=== PATIENT | female | born 1950 | race Caucasian/White ===

== ENCOUNTER 2019-07-08 22:58 | Inpatient (IN) | payer MEDICARE, OTHER ==
[2019-07-09] MEDS ORDERED: Magnesium Hydroxide (MOM) 30 mL UDC PO PRN (04:51)
[2019-07-09] MEDS ORDERED: Maalox 30 mL Cup PO PRN (04:51)
[2019-07-09] MEDS: Multivitamin Tab PO SCH (08:29)
--- NOTE | 2019-07-09 16:24 | History & Physical ---
ADMIT DATE: 07/09/2019 HISTORY OF PRESENT ILLNESS: This is a 68-year-old female who is a transfer from [facility] who is medically cleared, who is a resident of [facility] who is on 5150 hold for being gravely disabled. PAST MEDICAL HISTORY: Hypertension, TIA, CVA, GERD, depression, anxiety, Alzheimer's. PAST SURGICAL HISTORY: Unknown. ALLERGIES: No drug allergies. HOME MEDICATIONS: See medication list. SOCIAL HISTORY: The patient is a care home resident. REVIEW OF SYSTEMS: Unable to obtain at this time. PHYSICAL EXAMINATION: GENERAL: The patient is well-developed, well-nourished, no apparent distress. VITAL SIGNS: Temperature 97.0, heart rate 69, blood pressure 132/66, respirations 20, O2 97%. HEENT: Head; normocephalic, atraumatic. NECK: Supple. No mass. LUNGS: Clear bilaterally. ABDOMEN: Soft, nontender. EXTREMITIES: No edema noted. ASSESSMENT: History of transient ischemic attack, hypertension, gastroesophageal reflux disease, depression, anxiety, Alzheimer's. PLAN: We will continue the patient's home medications. Fall precautions will be initiated. We will continue to monitor this patient. JOB# [id number]
--- NOTE | 2019-07-09 22:54 | Psychiatric Evaluation ---
DATE OF SERVICE: PSYCHIATRIC INITIAL EVALUATION AND MENTAL STATUS EXAMINATION AGE: 68. SEX: Female. PHYSICIAN: Dr. Borjas. CHIEF COMPLAINT: 5150 hold for dangers to others and grave disability. HISTORY OF PRESENT ILLNESS: The patient is a 68-year-old female who was transferred from [facility] because of increased confusion and agitation. The patient also was not able to follow any directions. She also was yelling and screaming for no reason and she was aggressive and abusive to staff and peers. Upon arrival to the hospital, the patient was continuously crying for no reason and also, she was yelling and screaming all the time and was not cooperative with the staff and she was placed by the charge nurse on a 5150 hold for grave disability. PAST PSYCHIATRIC HISTORY: The patient has history of severe depression and also psychotic features. PAST MEDICAL HISTORY: The patient has hypertension, transient ischemic attack, cerebrovascular accident, seizure disorder, gastroesophageal reflux disease, and urinary tract infection. SOCIAL HISTORY: The patient lives in [facility]. No known alcohol or street drug use. ALLERGIES: No known allergies. MENTAL STATUS EXAMINATION: The patient appears older than stated age. Anxious. Flat affect. Irritable mood. Disorganized thoughts. Easily agitated and uncooperative. Episodes of yelling during interview. The patient also seems to be suspicious and paranoid and confused. The patient did not answer question regarding hallucinations or delusions, but seems to be actively responding. The patient denied suicidal or homicidal ideations. The patient is alert, but seems to be disoriented to time, place, person and situation. Impaired immediate and recent memory, but intact remote memory. Poor insight and poor judgment. Seems to be of average intelligence based on her verbal ability. ASSESSMENT: PRIMARY DIAGNOSIS: Depressive mood disorder, severe, recurrent, with psychotic features. MEDICAL DIAGNOSES: Hypertension. Transient ischemic attack. Cerebrovascular accident. Seizure disorder. Gastroesophageal reflux disease. Urinary tract infection. TREATMENT PLAN: We will continue Depakote Sprinkles and Remeron. We will add Risperdal 0.5 mg twice a day and we will adjust the dose. ESTIMATED LENGTH OF STAY: 5-7 days. PATIENT'S STRENGTHS AND WEAKNESSES: The patient's strength is not clear at this time except that staff [facility] are supportive to the patient. Weakness is her poor impulse control. AFTER DISCHARGE PLANS: Outpatient treatment and followup will continue as an outpatient and the [facility] CRITERIA FOR DISCHARGE: Better impulse control and stabilizing psychotropic medications. JOB# [id number]
[2019-07-10] MEDS: Multivitamin Tab PO SCH (08:33)
--- NOTE | 2019-07-10 08:45 | Progress Notes ---
DATE: 07/10/2019 SUBJECTIVE: Chart was reviewed and the patient interviewed. Also discussed the patient's condition with the staff and reviewed records and labs. The patient continued to be confused. The patient also is still crying for no apparent reason and she is still agitated. She also still needs lots of redirections. The patient also is restless. She also has been talking to self and still seems to be psychotic. Also, judgment is still poor. Otherwise, the patient continued to comply with taking her medications with no side effects of medications. ASSESSMENT: The patient is still psychotic and is still agitated. TREATMENT PLAN: Continue monitoring her behavior and her condition closely. Also, decrease Aricept to 10 mg every day since that she was taking 20 mg, which is above recommended levels. Also, continue monitoring her Depakote and we will increase Depakote to 750 mg at bedtime and continue to work on her irritability and continue to follow up. JOB# [id number]
--- NOTE | 2019-07-10 12:13 | Internal Medicine Prog Note ---
Internal Medicine Subjective - Subjective Patient is:: asleep, arousable, agitated, confused Per staff patient has:: no adverse event, no episodes of fall Internal Medicine Objective - Results Recent Labs: Laboratory Last Values POC Glucose 108 MG/DL (70 - 105) H 07/09/19 19:33 - Physical Exam Vitals and I&O: Vital Signs Temp 97.2 F 07/10/19 05:58 Pulse 101 07/10/19 05:58 Resp 17 07/10/19 08:00 BP 113/74 07/10/19 05:58 Pulse Ox 96 07/10/19 05:58 Intake & Output 07/09/19 07/10/19 07/10/19 18:59 06:59 18:59 Intake Total 1120 120 Output Total 1 Balance 1120 119 Intake: Oral 1120 120 Output: Urine/Stool Mix 1 Other: # Voids 4 1 # Bowel Movements 0 Active Medications: Current Medications Acetaminophen (Tylenol) 650 mg PO Q4H PRN PRN Reason: Pain (Mild 1-3) Stop: 09/07/19 04:50 Al Hydrox/Mg Hydrox/Simethicone (Maalox) 30 ml PO Q4HR PRN PRN Reason: GI DISTRESS Stop: 09/07/19 04:50 Cephalexin Monohydrate (Keflex) 500 mg PO QID [facility] Stop: 07/14/19 16:59 Last Admin: 07/10/19 08:34 Dose: 500 mg Divalproex Sodium (Depakote Sprinkle) 750 mg PO HS [facility]; Protocol Stop: 09/08/19 20:59 Donepezil HCl (Aricept) 10 mg PO HS [facility] Stop: 09/08/19 20:59 Lorazepam (Ativan) 0.5 mg PO Q4HR PRN; Protocol PRN Reason: Anxiety Stop: 08/08/19 04:50 Magnesium Hydroxide (Milk Of Magnesia) 30 ml PO HS PRN PRN Reason: Constipation Mirtazapine (Remeron) 15 mg PO HS [facility]; Protocol Stop: 09/07/19 20:59 Last Admin: 07/09/19 20:42 Dose: 15 mg Multivitamins/Vitamin C (Theragran) 1 tab PO DAILY [facility] Stop: 09/07/19 08:59 Last Admin: 07/10/19 08:33 Dose: 1 tab Risperidone (Risperdal) 0.5 mg PO BID [facility]; Protocol Stop: 09/07/19 08:59 Last Admin: 07/10/19 08:33 Dose: 0.5 mg Zolpidem Tartrate (Ambien) 5 mg PO HS PRN PRN Reason: Insomnia Stop: 09/07/19 04:50 Last Admin: 07/09/19 20:41 Dose: 5 mg General: weak, demented, NAD HEENT: NC/AT, PERRLA Neck: Supple, No JVD Lungs: CTAB Cardiovascular: RRR, Normal S1, Normal S2 Abdomen: soft, non-tender, non-distended Extremities: clear Internal Medicine Assmt/Plan - Assessment Assessment: Psychosis Agitation HTN TIA CVA GERD Depression Anxiety Alzheimer's disease - Plan Plan: Continue current treatment plan. Continue current medications Continue to monitor VS Monitor Diet/Nutritional support. Psych management per Psychiatry. Pain Management. PT/OT prn Safety precaution, Fall precaution, frequent nursing round. Supportive care. Continue collaborating with consulting specialists, case management and nursing team
[2019-07-11] MEDS: Multivitamin Tab PO SCH (10:00)
--- NOTE | 2019-07-11 10:39 | Progress Notes ---
DATE: 07/11/2019 SUBJECTIVE: The patient was seen in the room. The patient is asleep, but easily arousable. Appears to be agitated, guarded, easily gets frustrated and confused needing a lot of redirection. Otherwise, the patient appears to be in no acute distress. OBJECTIVE: VITAL SIGNS: Temperature 97.5, heart rate 66, blood pressure 126/91, respirations 18, and 99% on room air. HEENT: Head is atraumatic and normocephalic. Eyes: Bilateral conjunctivae are clear. Bilateral pupils are equally round and reactive. NECK: Supple. No JVD. CARDIOVASCULAR: S1 and S2, without murmur. PULMONARY: Clear to auscultation. GASTROINTESTINAL: Soft and nontender without guarding. Positive bowel sounds. MUSCULOSKELETAL: No clubbing. No cyanosis noted. ASSESSMENT: 1. Depression disorder with psychotic features. 2. Dementia. 3. Hypertension. 4. Gastroesophageal reflux disease. 5. History of transient ischemic attack. PLAN: We will continue to keep the patient inpatient to Psychiatric Unit. We will follow up with a psychiatrist to monitor the patient's condition and behavior. We will put the patient on fall precautions. Treatment plans were discussed with the patient's nurse. Treatment plans were discussed with Dr. Mireles. JOB# [id number]
--- NOTE | 2019-07-11 21:22 | Progress Notes ---
DATE: 07/11/2019 SUBJECTIVE: Chart was reviewed and the patient interviewed. Also discussed the patient's condition with the staff and reviewed records and labs. The patient is still confused. The patient also is anxious. During my interview, the patient was trying to get off bed and staff had to monitor her closely. The patient also was sliding off the [facility] chair when [facility]. She is still high for risk. At the same time, the patient still has crying spells and she is still rambling and unable to provide any safe plan for self-care. She also is having poor judgment and restless and needs close observation. ASSESSMENT: The patient is still confused and is still having difficulty with her following directions. TREATMENT PLAN: Continue Depakote and Risperdal and Aricept and Remeron same dose. Depakote was increased yesterday to 750 mg every day with no side effects. JOB# [id number]
[2019-07-12] MEDS: Multivitamin Tab PO SCH (09:56)
--- NOTE | 2019-07-12 21:51 | Internal Medicine Prog Note ---
Internal Medicine Subjective - Subjective Patient is:: asleep, arousable, agitated, confused Per staff patient has:: no adverse event, no episodes of fall, other (refusing meds) Internal Medicine Objective - Results Recent Labs: Laboratory Last Values POC Glucose 108 MG/DL (70 - 105) H 07/09/19 19:33 - Physical Exam Vitals and I&O: Vital Signs Temp 97.0 F 07/12/19 20:36 Pulse 64 07/12/19 20:36 Resp 18 07/12/19 20:36 BP 151/77 07/12/19 20:36 Pulse Ox 95 07/12/19 20:36 Intake & Output 07/12/19 07/12/19 07/13/19 06:59 18:59 06:59 Intake Total 240 240 Balance 240 240 Intake: Oral 240 240 Other: # Voids 1 2 2 # Bowel Movements 0 Active Medications: Current Medications Acetaminophen (Tylenol) 650 mg PO Q4H PRN PRN Reason: Pain (Mild 1-3) Stop: 09/07/19 04:50 Al Hydrox/Mg Hydrox/Simethicone (Maalox) 30 ml PO Q4HR PRN PRN Reason: GI DISTRESS Stop: 09/07/19 04:50 Cephalexin Monohydrate (Keflex) 500 mg PO QID [facility] Stop: 07/14/19 16:59 Last Admin: 07/12/19 21:05 Dose: 500 mg Divalproex Sodium (Depakote Sprinkle) 750 mg PO HS [facility]; Protocol Stop: 09/08/19 20:59 Last Admin: 07/12/19 21:05 Dose: 750 mg Donepezil HCl (Aricept) 10 mg PO HS [facility] Stop: 09/08/19 20:59 Last Admin: 07/12/19 21:05 Dose: 10 mg Lorazepam (Ativan) 0.5 mg PO Q4HR PRN; Protocol PRN Reason: Anxiety Stop: 08/08/19 04:50 Magnesium Hydroxide (Milk Of Magnesia) 30 ml PO HS PRN PRN Reason: Constipation Mirtazapine (Remeron) 15 mg PO HS [facility]; Protocol Stop: 09/07/19 20:59 Last Admin: 07/12/19 21:05 Dose: 15 mg Multivitamins/Vitamin C (Theragran) 1 tab PO DAILY [facility] Stop: 09/07/19 08:59 Last Admin: 07/12/19 09:56 Dose: Not Given Mupirocin (Bactroban Oint) 1 appl NS BID [facility] Stop: 07/15/19 09:01 Last Admin: 07/12/19 17:47 Dose: Not Given Risperidone (Risperdal) 0.5 mg PO BID [facility]; Protocol Stop: 09/07/19 08:59 Last Admin: 07/12/19 17:47 Dose: Not Given Zolpidem Tartrate (Ambien) 5 mg PO HS PRN PRN Reason: Insomnia Stop: 09/07/19 04:50 Last Admin: 07/10/19 21:25 Dose: 5 mg General: weak, demented, NAD HEENT: NC/AT, PERRLA Neck: Supple, No JVD Lungs: CTAB Cardiovascular: RRR, Normal S1, Normal S2 Abdomen: soft, non-tender, non-distended Extremities: clear Internal Medicine Assmt/Plan - Assessment Assessment: Psychosis Agitation HTN TIA CVA GERD Depression Anxiety Alzheimer's disease - Plan Plan: Continue current treatment plan. Continue current medications Continue to monitor VS Monitor Diet/Nutritional support. Psych management per Psychiatry. Pain Management. PT/OT prn Safety precaution, Fall precaution, frequent nursing round. Supportive care. Continue collaborating with consulting specialists, case management and nursing team
--- NOTE | 2019-07-12 22:21 | Progress Notes ---
DATE: 07/12/2019 SUBJECTIVE: Chart was reviewed and the patient interviewed. Also discussed the patient's condition with the staff and reviewed records and labs. The patient is still confused and restless. The patient also is still at times resisting care, but easier to redirect her. Also, still has disorganized thoughts and nonsense conversation. Also, at times talking to herself. Also, easily agitated, but slightly easier to redirect her. On the other hand, the patient continued to comply with taking her medications with no side effects of medications. ASSESSMENT: The patient is still confused and agitated. TREATMENT PLAN: Depakote was increased yesterday to 750 mg at bedtime. We will continue same dose and monitor the dose. Also, continue Risperdal, Remeron and Aricept and continue to work on behavioral modifications and followup. JOB# [id number]
--- NOTE | 2019-07-12 22:21 | Progress Notes ---
DATE: 07/12/2019 SUBJECTIVE: Chart was reviewed and the patient interviewed. Also discussed the patient's condition with the staff and reviewed records and labs. The patient is still confused and restless. The patient also is still talking nonsense and has disorganized thoughts. She also is still suspicious and somehow paranoid. On the other hand, the patient seems to be slightly more cooperative and not resisting care as much. She also has continued to interact slightly more, but in a confused state. ASSESSMENT: The patient is still confused and paranoid. TREATMENT PLAN: Continue to monitor behavior and condition closely. Also, Depakote was increased to 750 mg every day and we will continue same dose and continue Risperdal. DICTATION ENDS HERE JOB# [id number]
[2019-07-13] MEDS: Multivitamin Tab PO SCH (09:18)
--- NOTE | 2019-07-13 11:26 | Internal Medicine Prog Note ---
Internal Medicine Subjective - Subjective Service Date: 07/13/19 Patient seen and examined:: with staff Patient is:: awake, verbal, arousable, agitated, confused Patient Complaints of:: other (History of TIA, Gravely Disabled.) Per staff patient has:: no adverse event, no episodes of fall, other (refusing meds) Internal Medicine Objective - Results Recent Labs: Laboratory Last Values POC Glucose 108 MG/DL (70 - 105) H 07/09/19 19:33 - Physical Exam Vitals and I&O: Vital Signs Temp 96.0 F 07/13/19 05:59 Pulse 58 07/13/19 05:59 Resp 18 07/13/19 07:48 BP 142/66 07/13/19 05:59 Pulse Ox 94 07/13/19 05:59 Intake & Output 07/12/19 07/13/19 07/13/19 18:59 06:59 18:59 Intake Total 300 Balance 300 Intake: Oral 300 Other: # Voids 2 1 # Bowel Movements 0 0 Active Medications: Current Medications Acetaminophen (Tylenol) 650 mg PO Q4H PRN PRN Reason: Pain (Mild 1-3) Stop: 09/07/19 04:50 Al Hydrox/Mg Hydrox/Simethicone (Maalox) 30 ml PO Q4HR PRN PRN Reason: GI DISTRESS Stop: 09/07/19 04:50 Cephalexin Monohydrate (Keflex) 500 mg PO QID [facility] Stop: 07/14/19 16:59 Last Admin: 07/13/19 09:18 Dose: Not Given Divalproex Sodium (Depakote Sprinkle) 750 mg PO HS [facility]; Protocol Stop: 09/08/19 20:59 Last Admin: 07/12/19 21:05 Dose: 750 mg Donepezil HCl (Aricept) 10 mg PO HS [facility] Stop: 09/08/19 20:59 Last Admin: 07/12/19 21:05 Dose: 10 mg Lorazepam (Ativan) 0.5 mg PO Q4HR PRN; Protocol PRN Reason: Anxiety Stop: 08/08/19 04:50 Magnesium Hydroxide (Milk Of Magnesia) 30 ml PO HS PRN PRN Reason: Constipation Mirtazapine (Remeron) 15 mg PO HS [facility]; Protocol Stop: 09/07/19 20:59 Last Admin: 07/12/19 21:05 Dose: 15 mg Multivitamins/Vitamin C (Theragran) 1 tab PO DAILY [facility] Stop: 09/07/19 08:59 Last Admin: 07/13/19 09:18 Dose: Not Given Mupirocin (Bactroban Oint) 1 appl NS BID [facility] Stop: 07/15/19 09:01 Last Admin: 07/13/19 09:18 Dose: Not Given Risperidone (Risperdal) 0.5 mg PO BID [facility]; Protocol Stop: 09/07/19 08:59 Last Admin: 07/13/19 09:18 Dose: Not Given Zolpidem Tartrate (Ambien) 5 mg PO HS PRN PRN Reason: Insomnia Stop: 09/07/19 04:50 Last Admin: 07/10/19 21:25 Dose: 5 mg Physical Exam: Patient needs close monitoring, Has been talking to herself, she is irritable and very dis-oriented. General: weak, demented, NAD HEENT: NC/AT, PERRLA Neck: Supple, No JVD Lungs: CTAB Cardiovascular: RRR, Normal S1, Normal S2 Abdomen: soft, non-tender, non-distended Extremities: clear Neurological: no change Internal Medicine Assmt/Plan - Assessment Assessment: Gravely disabled, On 5150 Hold. Anxiety. Alzheimer's disease. Hypertnesion. Gerd. Depression. History of TIA. - Plan Plan: Psych management as per Psych. Continue meds as directed. Monitor diet and nutritional support. Supportive care. Monitor vitals and labs. Continue current treatment plan as ordered. Nutritional Asmnt/Malnutr-PDOC - Dietary Evaluation Malnutrition Findings (Please click <Entered> for more info): see orders.
--- NOTE | 2019-07-14 01:38 | Progress Notes ---
DATE: SUBJECTIVE: Chart was reviewed and the patient interviewed. Also discussed the patient's condition with the staff and reviewed records and labs. The patient is still disoriented and confused. The patient also is still having disorganized thoughts. She also still have episodes of irritability. The patient also seems to be catatonic during interview. Otherwise, the patient is compliant with taking her medications with no side effects of medications. ASSESSMENT: The patient is still confused and is still unable to make decisions. TREATMENT PLAN: Continue monitoring her medications and her behavior closely and we will continue to followup. JOB# [id number]
[2019-07-14] MEDS: Multivitamin Tab PO SCH (09:41)
--- NOTE | 2019-07-14 17:27 | Internal Medicine Prog Note ---
Internal Medicine Subjective - Subjective Service Date: 07/14/19 Patient is:: awake, verbal, arousable, agitated, confused Patient Complaints of:: other (History of TIA, Gravely Disabled.) Per staff patient has:: no adverse event, no episodes of fall, other (refusing meds) Internal Medicine Objective - Results Recent Labs: Laboratory Last Values POC Glucose 108 MG/DL (70 - 105) H 07/09/19 19:33 - Physical Exam Vitals and I&O: Vital Signs Temp 97.2 F 07/14/19 15:25 Pulse 47 07/14/19 15:25 Resp 18 07/14/19 15:25 BP 95/56 07/14/19 15:25 Pulse Ox 93 07/14/19 15:25 Intake & Output 07/13/19 07/14/19 07/14/19 18:59 06:59 18:59 Intake Total 960 240 Output Total 1 Balance 960 239 Intake: Oral 960 240 Output: Urine/Stool Mix 1 Other: # Voids 4 1 # Bowel Movements 1 1 Active Medications: Current Medications Acetaminophen (Tylenol) 650 mg PO Q4H PRN PRN Reason: Pain (Mild 1-3) Stop: 09/07/19 04:50 Al Hydrox/Mg Hydrox/Simethicone (Maalox) 30 ml PO Q4HR PRN PRN Reason: GI DISTRESS Stop: 09/07/19 04:50 Divalproex Sodium (Depakote Sprinkle) 750 mg PO HS [facility]; Protocol Stop: 09/08/19 20:59 Last Admin: 07/13/19 20:56 Dose: 750 mg Donepezil HCl (Aricept) 10 mg PO HS [facility] Stop: 09/08/19 20:59 Last Admin: 07/13/19 20:56 Dose: 10 mg Lorazepam (Ativan) 0.5 mg PO Q4HR PRN; Protocol PRN Reason: Anxiety Stop: 08/08/19 04:50 Magnesium Hydroxide (Milk Of Magnesia) 30 ml PO HS PRN PRN Reason: Constipation Mirtazapine (Remeron) 15 mg PO HS [facility]; Protocol Stop: 09/07/19 20:59 Last Admin: 07/13/19 20:56 Dose: 15 mg Multivitamins/Vitamin C (Theragran) 1 tab PO DAILY [facility] Stop: 09/07/19 08:59 Last Admin: 07/14/19 09:41 Dose: 1 tab Mupirocin (Bactroban Oint) 1 appl NS BID [facility] Stop: 07/15/19 09:01 Last Admin: 07/14/19 09:41 Dose: 1 appl Risperidone (Risperdal) 0.5 mg PO BID [facility]; Protocol Stop: 09/07/19 08:59 Last Admin: 07/14/19 16:55 Dose: 0.5 mg Zolpidem Tartrate (Ambien) 5 mg PO HS PRN PRN Reason: Insomnia Stop: 09/07/19 04:50 Last Admin: 07/10/19 21:25 Dose: 5 mg General: weak, demented, NAD HEENT: NC/AT, PERRLA Neck: Supple, No JVD Lungs: CTAB Cardiovascular: RRR, Normal S1, Normal S2 Abdomen: soft, non-tender, non-distended Extremities: clear Neurological: no change Nutritional Asmnt/Malnutr-PDOC - Dietary Evaluation Malnutrition Findings (Please click <Entered> for more info): Nutritional Asmnt/Malnutrition Start: 07/13/19 13: 53 Text: Status: Complete Freq: Protocol: Document 07/13/19 13:54 AMARA (Rec: 07/13/19 13:58 [id number]) Nutritional Asmnt/Malnutrition Patient General Information Nutritional Screening Moderate Risk Diagnosis Psychosis Pertinent Medical Hx/Surgical Hx HTN, TIA, CVA, GERD, Depression, Anxiety, Alzheimer s Disease Subjective Information Pt is a 68-year-old female admitted on 07/09 d/t psychosis . Pt is eating an estimated 50 % of meals since admit date ( x4 days) Per Meal/Nutrition Activity Record. Dietary is currently providing an estimated 2100 kcals and 100 gm Pro, per Pt PO intake this is providing an estimated 1050 kcals and 50gm Pro to meet 75 % kcal and 83% Pro needs. Anthropometrics HT: 55 WT: 126 LB (57.27 kg) BMI: 21.11 (Normal) GI/ Skin Integrity GI: WNL, Soft, Non-tender BM: Not Noted I/O: 300/Not Noted Skin: WNL, Intact Romel: 17 Diet Order: Mechanical Soft, JESSICA Estimated Energy Needs: ( Geriatric, CBW) 1869-4055 kcals (25-30 kcals/ kg) 60-70g Pro (1.0-1.2 g/kg) 7216-2391 ml (25-30 ml/kg) Current Diet Order/ Nutrition Support Mechanical Soft, JESSICA Pertinent Medications Maalox (PRN), MOM (PRN), Theragran Pertinent Labs 07/09: Glucose 143, BUN/Cr 22/0 .96, GFR 61, Urine Ketones- Trace, Urine Protein 1+ POC Glucose (07/09): 108 Nutritional Hx/Data Height 5 ft 5 in Height (Calculated Centimeters) 165.1 Current Weight (lbs) 126 lb Weight (Calculated Kilograms) 57.2 Weight (Calculated Grams) 59762.6 Mobile Body Weight 125 LB (56.82 kg) % Mobile Body Weight 100 Body Mass Index (BMI) 20.9 Weight Status Approriate GI Symptoms Last BM Not Noted Skin Integrity/Comment: Skin: WNL, Intact Romel: 17 Current %PO Fair (50-74%) Estimated Nutritional Goals BEE in Kcals: Using Current wt Calories/Kcals/Kg 25-30 Kcals Calculated 5629-8551 Protein: Using Current wt Protein g/k.0-1.2 Protein Calculated 60-70 Fluid: ml 6855-8978 ml (25-30 ml/kg) Nutritional Problem 1. Problem Problem Altered nutrition related labs Etiology r/t pathophysiological causes Signs/Symptoms: aeb labs (07/09): Glucose 143, BUN/Cr 22/0.96, GFR 61, Urine Ketones- Trace, Urine Protein 1+, POC Glucose (07/09): 108. Malnutrition Related to Morbid Obesity Malnutrition related to morbid obesity No Intervention/Recommendation Comments Continue Mechanical Soft, JESSICA diet as tolerated. Expected Outcomes/Goals Expected Outcomes/Goals 1.PO intake to continue to meet 75% of estimated nutritional needs. 2.Monitor PO intake, wt, nutrition related labs to trend WNL, and skin integrity. 3.F/U as moderate risk in 3-5 days, 07/16-07/18
--- NOTE | 2019-07-14 18:44 | Progress Notes ---
DATE: 07/14/2019 SUBJECTIVE: Chart was reviewed and the patient interviewed. Also discussed the patient's condition with the staff and reviewed records and labs. The patient is still confused and only oriented x 1, which is to her name. The patient also still has incoherent speech and thought processes are rambling with flight of ideas. The patient also is unable to carry on coherent conversation and during interview, the patient keeps her eyes closed. She also is still resisting care and wants to be left alone and isolates herself. Otherwise, the patient is compliant with taking her medications with no side effects of medications, but she is refusing to take Risperdal, but taking the rest of the medications. ASSESSMENT: The patient is still confused and psychotic. TREATMENT PLAN: Continue to monitor behavior and condition closely. Also, encouraged the patient to take all her medications. Also, continue to work on her ineffective coping and her paranoia and continue to follow up. JOB# [id number]
[2019-07-15] MEDS: Multivitamin Tab PO SCH (08:15)
--- NOTE | 2019-07-15 11:18 | Internal Medicine Prog Note ---
Internal Medicine Subjective - Subjective Service Date: 07/15/19 Patient seen and examined:: with staff Patient is:: awake, verbal, arousable, agitated, confused Patient Complaints of:: other (History of TIA, Gravely Disabled.) Per staff patient has:: no adverse event, no episodes of fall, other (refusing meds) Internal Medicine Objective - Results Recent Labs: Laboratory Last Values POC Glucose 108 MG/DL (70 - 105) H 07/09/19 19:33 - Physical Exam Vitals and I&O: Vital Signs Temp 97.5 F 07/15/19 06:36 Pulse 72 07/15/19 06:36 Resp 18 07/15/19 08:00 BP 120/91 07/15/19 06:36 Pulse Ox 100 07/15/19 06:36 Intake & Output 07/14/19 07/15/19 07/15/19 18:59 06:59 18:59 Intake Total 600 360 Output Total 1 Balance 600 359 Intake: Oral 600 360 Output: Urine/Stool Mix 1 Other: # Voids 3 2 # Bowel Movements 0 0 Active Medications: Current Medications Acetaminophen (Tylenol) 650 mg PO Q4H PRN PRN Reason: Pain (Mild 1-3) Stop: 09/07/19 04:50 Al Hydrox/Mg Hydrox/Simethicone (Maalox) 30 ml PO Q4HR PRN PRN Reason: GI DISTRESS Stop: 09/07/19 04:50 Donepezil HCl (Aricept) 10 mg PO HS CORY Stop: 09/08/19 20:59 Last Admin: 07/14/19 21:22 Dose: Not Given Lorazepam (Ativan) 0.5 mg PO Q4HR PRN; Protocol PRN Reason: Anxiety Stop: 08/08/19 04:50 Magnesium Hydroxide (Milk Of Magnesia) 30 ml PO HS PRN PRN Reason: Constipation Mirtazapine (Remeron) 15 mg PO HS CORY; Protocol Stop: 09/07/19 20:59 Last Admin: 07/14/19 21:22 Dose: Not Given Multivitamins/Vitamin C (Theragran) 1 tab PO DAILY CORY Stop: 09/07/19 08:59 Last Admin: 07/15/19 08:15 Dose: 1 tab Risperidone (Risperdal) 1 mg PO BID CORY; Protocol Stop: 09/13/19 08:59 Last Admin: 07/15/19 09:08 Dose: 1 mg Valproate Sodium (Depakene) 500 mg PO BID CORY; Protocol Stop: 09/13/19 08:59 Last Admin: 07/15/19 09:08 Dose: 500 mg Zolpidem Tartrate (Ambien) 5 mg PO HS PRN PRN Reason: Insomnia Stop: 09/07/19 04:50 Last Admin: 07/10/19 21:25 Dose: 5 mg Physical Exam: Patient needs close monitoring, very confused, withdrawn and wanting to be left alone, may be danger to self and others. General: weak, demented, NAD HEENT: NC/AT, PERRLA Neck: Supple, No JVD Lungs: CTAB Cardiovascular: RRR, Normal S1, Normal S2 Abdomen: soft, non-tender, non-distended Extremities: clear Neurological: no change Internal Medicine Assmt/Plan - Assessment Assessment: Gravely disabled, On 5150 Hold. Anxiety. Alzheimer's disease. Hypertnesion. Gerd. Depression. History of TIA. - Plan Plan: Psych management as per Psych. Continue meds as directed. Monitor diet and nutritional support. Supportive care. Monitor vitals and labs. Continue current treatment plan as ordered. Nutritional Asmnt/Malnutr-PDOC - Dietary Evaluation Malnutrition Findings (Please click <Entered> for more info): Nutritional Asmnt/Malnutrition Start: 07/13/19 13: 53 Text: Status: Complete Freq: Protocol: Document 07/13/19 13:54 AMARA (Rec: 07/13/19 13:58 AMARA [email or web address]) Nutritional Asmnt/Malnutrition Patient General Information Nutritional Screening Moderate Risk Diagnosis Psychosis Pertinent Medical Hx/Surgical Hx HTN, TIA, CVA, GERD, Depression, Anxiety, Alzheimer s Disease Subjective Information Pt is a 68-year-old female admitted on 07/09 d/t psychosis . Pt is eating an estimated 50 % of meals since admit date ( x4 days) Per Meal/Nutrition Activity Record. Dietary is currently providing an estimated 2100 kcals and 100 gm Pro, per Pt PO intake this is providing an estimated 1050 kcals and 50gm Pro to meet 75 % kcal and 83% Pro needs. Anthropometrics HT: 55 WT: 126 LB (57.27 kg) BMI: 21.11 (Normal) GI/ Skin Integrity GI: WNL, Soft, Non-tender BM: Not Noted I/O: 300/Not Noted Skin: WNL, Intact Romel: 17 Diet Order: Mechanical Soft, JESSICA Estimated Energy Needs: ( Geriatric, CBW) 7440-3783 kcals (25-30 kcals/ kg) 60-70g Pro (1.0-1.2 g/kg) 1955-7614 ml (25-30 ml/kg) Current Diet Order/ Nutrition Support Mechanical Soft, JESSICA Pertinent Medications Maalox (PRN), MOM (PRN), Theragran Pertinent Labs 07/09: Glucose 143, BUN/Cr 22/0 .96, GFR 61, Urine Ketones- Trace, Urine Protein 1+ POC Glucose (07/09): 108 Nutritional Hx/Data Height 1.65 m Height (Calculated Centimeters) 165.1 Current Weight (lbs) 57.153 kg Weight (Calculated Kilograms) 57.2 Weight (Calculated Grams) 28618.6 [place] Body Weight 125 LB (56.82 kg) % [place] Body Weight 100 Body Mass Index (BMI) 20.9 Weight Status Approriate GI Symptoms Last BM Not Noted Skin Integrity/Comment: Skin: WNL, Intact Romel: 17 Current %PO Fair (50-74%) Estimated Nutritional Goals BEE in Kcals: Using Current wt Calories/Kcals/Kg 25-30 Kcals Calculated 6544-1244 Protein: Using Current wt Protein g/k.0-1.2 Protein Calculated 60-70 Fluid: ml 6731-0078 ml (25-30 ml/kg) Nutritional Problem 1. Problem Problem Altered nutrition related labs Etiology r/t pathophysiological causes Signs/Symptoms: aeb labs (07/09): Glucose 143, BUN/Cr 22/0.96, GFR 61, Urine Ketones- Trace, Urine Protein 1+, POC Glucose (07/09): 108. Malnutrition Related to Morbid Obesity Malnutrition related to morbid obesity No Intervention/Recommendation Comments Continue Mechanical Soft, JESSICA diet as tolerated. Expected Outcomes/Goals Expected Outcomes/Goals 1.PO intake to continue to meet 75% of estimated nutritional needs. 2.Monitor PO intake, wt, nutrition related labs to trend WNL, and skin integrity. 3.F/U as moderate risk in 3-5 days, 07/16-07/18
[2019-07-16] MEDS: Multivitamin Tab PO SCH (09:06)
--- NOTE | 2019-07-16 10:13 | Progress Notes ---
DATE: 07/15/2019 SUBJECTIVE: Chart was reviewed and the patient interviewed. Also discussed the patient's condition with the staff and reviewed records and labs. The patient is still anxious and is still confused and depressed. The patient also is still isolative and she is still unable to express her needs or her feelings. The patient also still selective with medications. She did take her medications yesterday. She is still suspicious and is still paranoid and selective with taking medications. ASSESSMENT: The patient is still depressed and psychotic. TREATMENT PLAN: We will continue to monitor behavior and condition closely. Also, we will increase Risperdal to 1 mg twice a day and Depakote to 500 mg twice a day. Staff reports that the patient sometimes spits medications and does not take it. Encouraged the patient to comply and take her medications regularly. JOB# [id number]
--- NOTE | 2019-07-16 10:13 | Progress Notes ---
DATE: SUBJECTIVE: Chart was reviewed and the patient interviewed. Also discussed the patient's condition with the staff and I reviewed records and labs. The patient is still guarded and is still in a depressed mood. The patient also is interacting minimally with peers and with others. The patient also still needs redirections. On the other hand, the patient's appetite is better and the patient seems to be calmer. Also, she is compliant with taking her medications with no side effects of medications. ASSESSMENT: The patient is less irritable and less agitated. TREATMENT PLAN: We will continue to follow up with her irritability and agitation and we will continue to follow up. JOB# [id number]
--- NOTE | 2019-07-16 14:05 | Internal Medicine Prog Note ---
Internal Medicine Subjective - Subjective Service Date: 07/16/19 Patient is:: awake, verbal, arousable, agitated, confused Patient Complaints of:: other (History of TIA, Gravely Disabled.) Per staff patient has:: no adverse event, no episodes of fall, other (refusing meds) Internal Medicine Objective - Results Recent Labs: Laboratory Last Values POC Glucose 108 MG/DL (70 - 105) H 07/09/19 19:33 - Physical Exam Vitals and I&O: Vital Signs Temp 97.0 F 07/16/19 06:30 Pulse 75 07/16/19 06:30 Resp 18 07/16/19 08:00 BP 145/87 07/16/19 06:30 Pulse Ox 94 07/16/19 06:30 Intake & Output 07/15/19 07/16/19 07/16/19 18:59 06:59 18:59 Intake Total 1200 120 Balance 1200 120 Intake: Oral 1200 120 Other: # Voids 2 # Bowel Movements 1 0 Active Medications: Current Medications Acetaminophen (Tylenol) 650 mg PO Q4H PRN PRN Reason: Pain (Mild 1-3) Stop: 09/07/19 04:50 Al Hydrox/Mg Hydrox/Simethicone (Maalox) 30 ml PO Q4HR PRN PRN Reason: GI DISTRESS Stop: 09/07/19 04:50 Donepezil HCl (Aricept) 10 mg PO HS CORY Stop: 09/08/19 20:59 Last Admin: 07/15/19 20:08 Dose: 10 mg Lorazepam (Ativan) 0.5 mg PO Q4HR PRN; Protocol PRN Reason: Anxiety Stop: 08/08/19 04:50 Magnesium Hydroxide (Milk Of Magnesia) 30 ml PO HS PRN PRN Reason: Constipation Mirtazapine (Remeron) 15 mg PO HS CORY; Protocol Stop: 09/07/19 20:59 Last Admin: 07/15/19 20:08 Dose: 15 mg Multivitamins/Vitamin C (Theragran) 1 tab PO DAILY CORY Stop: 09/07/19 08:59 Last Admin: 07/16/19 09:06 Dose: 1 tab Risperidone (Risperdal) 1 mg PO BID CORY; Protocol Stop: 09/13/19 08:59 Last Admin: 07/16/19 09:06 Dose: 1 mg Valproate Sodium (Depakene) 500 mg PO BID CORY; Protocol Stop: 09/13/19 08:59 Last Admin: 07/16/19 09:05 Dose: 500 mg Zolpidem Tartrate (Ambien) 5 mg PO HS PRN PRN Reason: Insomnia Stop: 09/07/19 04:50 Last Admin: 07/10/19 21:25 Dose: 5 mg General: weak, demented, NAD HEENT: NC/AT, PERRLA Neck: Supple, No JVD Lungs: CTAB Cardiovascular: RRR, Normal S1, Normal S2 Abdomen: soft, non-tender, non-distended Extremities: clear Neurological: no change Internal Medicine Assmt/Plan - Assessment Assessment: Psychosis Agitation HTN TIA CVA GERD Depression Anxiety Alzheimer's disease - Plan Plan: Continue current treatment plan. Continue current medications Continue to monitor VS Monitor Diet/Nutritional support. Psych management per Psychiatry. Pain Management. PT/OT prn Safety precaution, Fall precaution, frequent nursing round. Supportive care. Continue collaborating with consulting specialists, case management and nursing team Nutritional Asmnt/Malnutr-PDOC - Dietary Evaluation Malnutrition Findings (Please click <Entered> for more info): Nutritional Asmnt/Malnutrition Start: 07/13/19 13: 53 Text: Status: Complete Freq: Protocol: Document 07/13/19 13:54 AMARA (Rec: 07/13/19 13:58 AMARA [email or web address]) Nutritional Asmnt/Malnutrition Patient General Information Nutritional Screening Moderate Risk Diagnosis Psychosis Pertinent Medical Hx/Surgical Hx HTN, TIA, CVA, GERD, Depression, Anxiety, Alzheimer s Disease Subjective Information Pt is a 68-year-old female admitted on 07/09 d/t psychosis . Pt is eating an estimated 50 % of meals since admit date ( x4 days) Per Meal/Nutrition Activity Record. Dietary is currently providing an estimated 2100 kcals and 100 gm Pro, per Pt PO intake this is providing an estimated 1050 kcals and 50gm Pro to meet 75 % kcal and 83% Pro needs. Anthropometrics HT: 55 WT: 126 LB (57.27 kg) BMI: 21.11 (Normal) GI/ Skin Integrity GI: WNL, Soft, Non-tender BM: Not Noted I/O: 300/Not Noted Skin: WNL, Intact Romel: 17 Diet Order: Mechanical Soft, JESSICA Estimated Energy Needs: ( Geriatric, CBW) 4820-8893 kcals (25-30 kcals/ kg) 60-70g Pro (1.0-1.2 g/kg) 6608-0754 ml (25-30 ml/kg) Current Diet Order/ Nutrition Support Mechanical Soft, JESSICA Pertinent Medications Maalox (PRN), MOM (PRN), Theragran Pertinent Labs 07/09: Glucose 143, BUN/Cr 22/0 .96, GFR 61, Urine Ketones- Trace, Urine Protein 1+ POC Glucose (07/09): 108 Nutritional Hx/Data Height 5 ft 5 in Height (Calculated Centimeters) 165.1 Current Weight (lbs) 126 lb Weight (Calculated Kilograms) 57.2 Weight (Calculated Grams) 49875.6 [place] Body Weight 125 LB (56.82 kg) % [place] Body Weight 100 Body Mass Index (BMI) 20.9 Weight Status Approriate GI Symptoms Last BM Not Noted Skin Integrity/Comment: Skin: WNL, Intact Romel: 17 Current %PO Fair (50-74%) Estimated Nutritional Goals BEE in Kcals: Using Current wt Calories/Kcals/Kg 25-30 Kcals Calculated 0931-1987 Protein: Using Current wt Protein g/k.0-1.2 Protein Calculated 60-70 Fluid: ml 1021-2395 ml (25-30 ml/kg) Nutritional Problem 1. Problem Problem Altered nutrition related labs Etiology r/t pathophysiological causes Signs/Symptoms: aeb labs (07/09): Glucose 143, BUN/Cr 22/0.96, GFR 61, Urine Ketones- Trace, Urine Protein 1+, POC Glucose (07/09): 108. Malnutrition Related to Morbid Obesity Malnutrition related to morbid obesity No Intervention/Recommendation Comments Continue Mechanical Soft, JESSICA diet as tolerated. Expected Outcomes/Goals Expected Outcomes/Goals 1.PO intake to continue to meet 75% of estimated nutritional needs. 2.Monitor PO intake, wt, nutrition related labs to trend WNL, and skin integrity. 3.F/U as moderate risk in 3-5 days, 07/16-07/18
--- NOTE | 2019-07-17 07:45 | Discharge Summary ---
DATE OF DISCHARGE: 07/17/2019 AGE: 68. SEX: Female. PHYSICIAN: Dr. Borjas. PRIMARY DIAGNOSIS: Depressive mood disorder, severe, recurrent, with psychotic features. MEDICAL DIAGNOSES: 1. Hypertension. 2. Transient ischemic attack. 3. Seizure disorder. 4. Cerebrovascular accident. 5. Gastroesophageal reflux disease. 6. Urinary tract infection. REASON FOR HOSPITALIZATION: The patient was placed on 5150 hold for dangers to self and grave disability and the patient was agitated and confused, but also was depressed. The patient also had episodes of screaming and yelling for no reason. HOSPITAL COURSE: The patient was depressed and was withdrawn. The patient also was anxious. The patient was given Remeron and the dose adjusted to 50 mg at bedtime. Also, continued to take Aricept in a dose of 10 mg at bedtime and Risperdal 1 mg twice a day. Also, the patient continued to take Depakote 500 mg twice a day for her seizure disorder. Gradually, the patient's affect was brighter. The patient was less irritable and less agitated. She also interacted more appropriately with peers and unknown others and the patient was discharged from the hospital. PHYSICAL EXAMINATION: The patient came as mentioned under medical diagnosis and final diagnosis. No major medical problems while in the hospital. AFTER DISCHARGE PLANS: The patient discharged from the hospital and returned to [facility] with plan to follow her there. EXPECTED OUTCOME AFTER DISCHARGE: Fair if the patient continued to take her medications and follow up with discharge plans. JOB# [id number]
[2019-07-17] MEDS: Multivitamin Tab PO SCH (08:41)
--- NOTE | 2019-07-17 13:28 | Internal Medicine Prog Note ---
Internal Medicine Subjective - Subjective Service Date: 07/17/19 Patient seen and examined:: with staff Patient is:: awake, verbal, arousable, agitated, confused Patient Complaints of:: other (History of TIA, Gravely Disabled.) Per staff patient has:: no adverse event, no episodes of fall, other (refusing meds) Internal Medicine Objective - Results Recent Labs: Laboratory Last Values POC Glucose 108 MG/DL (70 - 105) H 07/09/19 19:33 - Physical Exam Vitals and I&O: Vital Signs Temp 97 F 07/17/19 06:35 Pulse 68 07/17/19 06:35 Resp 18 07/17/19 06:35 BP 118/64 07/17/19 06:35 Pulse Ox 98 07/17/19 06:35 Intake & Output 07/16/19 07/17/19 07/17/19 18:59 06:59 18:59 Intake Total 1200 120 Balance 1200 120 Intake: Oral 1200 120 Other: # Voids 3 # Bowel Movements 1 Active Medications: Current Medications Acetaminophen (Tylenol) 650 mg PO Q4H PRN PRN Reason: Pain (Mild 1-3) Stop: 09/07/19 04:50 Al Hydrox/Mg Hydrox/Simethicone (Maalox) 30 ml PO Q4HR PRN PRN Reason: GI DISTRESS Stop: 09/07/19 04:50 Donepezil HCl (Aricept) 10 mg PO HS CORY Stop: 09/08/19 20:59 Last Admin: 07/16/19 20:56 Dose: 10 mg Lorazepam (Ativan) 0.5 mg PO Q4HR PRN; Protocol PRN Reason: Anxiety Stop: 08/08/19 04:50 Magnesium Hydroxide (Milk Of Magnesia) 30 ml PO HS PRN PRN Reason: Constipation Mirtazapine (Remeron) 15 mg PO HS CORY; Protocol Stop: 09/07/19 20:59 Last Admin: 07/16/19 20:56 Dose: 15 mg Multivitamins/Vitamin C (Theragran) 1 tab PO DAILY CORY Stop: 09/07/19 08:59 Last Admin: 07/17/19 08:41 Dose: 1 tab Risperidone (Risperdal) 1 mg PO BID CORY; Protocol Stop: 09/13/19 08:59 Last Admin: 07/17/19 08:41 Dose: 1 mg Valproate Sodium (Depakene) 500 mg PO BID CORY; Protocol Stop: 09/13/19 08:59 Last Admin: 07/17/19 08:40 Dose: 500 mg Zolpidem Tartrate (Ambien) 5 mg PO HS PRN PRN Reason: Insomnia Stop: 09/07/19 04:50 Last Admin: 07/16/19 23:31 Dose: 5 mg Physical Exam: Patient is less agitated and aggressive, getting ready to be discharged to [facility] [place] where she will continue present care management. General: weak, demented, NAD HEENT: NC/AT, PERRLA Neck: Supple, No JVD Lungs: CTAB Cardiovascular: RRR, Normal S1, Normal S2 Abdomen: soft, non-tender, non-distended Extremities: clear Neurological: no change Internal Medicine Assmt/Plan - Assessment Assessment: Gravely disabled, was on 5150 Hold. Anxiety. Alzheimer's disease. Hypertnesion. Gerd. Depression. History of TIA. - Plan Plan: Discharge Planning. Psych management as per Psych. Continue meds as directed. Monitor diet and nutritional support. Supportive care. Monitor vitals and labs. Continue current treatment plan as ordered. Nutritional Asmnt/Malnutr-PDOC - Dietary Evaluation Malnutrition Findings (Please click <Entered> for more info): Nutritional Asmnt/Malnutrition Start: 07/13/19 13: 53 Text: Status: Complete Freq: Protocol: Document 07/13/19 13:54 AMARA (Rec: 07/13/19 13:58 AMARA [email or web address]) Nutritional Asmnt/Malnutrition Patient General Information Nutritional Screening Moderate Risk Diagnosis Psychosis Pertinent Medical Hx/Surgical Hx HTN, TIA, CVA, GERD, Depression, Anxiety, Alzheimer s Disease Subjective Information Pt is a 68-year-old female admitted on 07/09 d/t psychosis . Pt is eating an estimated 50 % of meals since admit date ( x4 days) Per Meal/Nutrition Activity Record. Dietary is currently providing an estimated 2100 kcals and 100 gm Pro, per Pt PO intake this is providing an estimated 1050 kcals and 50gm Pro to meet 75 % kcal and 83% Pro needs. Anthropometrics HT: 55 WT: 126 LB (57.27 kg) BMI: 21.11 (Normal) GI/ Skin Integrity GI: WNL, Soft, Non-tender BM: Not Noted I/O: 300/Not Noted Skin: WNL, Intact Romel: 17 Diet Order: Mechanical Soft, JESSICA Estimated Energy Needs: ( Geriatric, CBW) 1491-3231 kcals (25-30 kcals/ kg) 60-70g Pro (1.0-1.2 g/kg) 8553-1289 ml (25-30 ml/kg) Current Diet Order/ Nutrition Support Mechanical Soft, JESSICA Pertinent Medications Maalox (PRN), MOM (PRN), Theragran Pertinent Labs 07/09: Glucose 143, BUN/Cr 22/0 .96, GFR 61, Urine Ketones- Trace, Urine Protein 1+ POC Glucose (07/09): 108 Nutritional Hx/Data Height 1.65 m Height (Calculated Centimeters) 165.1 Current Weight (lbs) 57.153 kg Weight (Calculated Kilograms) 57.2 Weight (Calculated Grams) 23268.6 [place] Body Weight 125 LB (56.82 kg) % [place] Body Weight 100 Body Mass Index (BMI) 20.9 Weight Status Approriate GI Symptoms Last BM Not Noted Skin Integrity/Comment: Skin: WNL, Intact Romel: 17 Current %PO Fair (50-74%) Estimated Nutritional Goals BEE in Kcals: Using Current wt Calories/Kcals/Kg 25-30 Kcals Calculated 5771-5387 Protein: Using Current wt Protein g/k.0-1.2 Protein Calculated 60-70 Fluid: ml 4504-7878 ml (25-30 ml/kg) Nutritional Problem 1. Problem Problem Altered nutrition related labs Etiology r/t pathophysiological causes Signs/Symptoms: aeb labs (07/09): Glucose 143, BUN/Cr 22/0.96, GFR 61, Urine Ketones- Trace, Urine Protein 1+, POC Glucose (07/09): 108. Malnutrition Related to Morbid Obesity Malnutrition related to morbid obesity No Intervention/Recommendation Comments Continue Mechanical Soft, JESSICA diet as tolerated. Expected Outcomes/Goals Expected Outcomes/Goals 1.PO intake to continue to meet 75% of estimated nutritional needs. 2.Monitor PO intake, wt, nutrition related labs to trend WNL, and skin integrity. 3.F/U as moderate risk in 3-5 days, 07/16-07/18
--- NOTE | 2019-07-17 20:08 | Progress Notes ---
DATE: 07/17/2019 SUBJECTIVE: Chart was reviewed and the patient interviewed. Also discussed the patient's condition with the staff and reviewed records and labs. The patient is calm and less agitated and less irritable and less depressed, but she is still anxious. The patient also is still at times seems to be suspicious. I was planning to discharge the patient today but at the same time [facility] where she lives has no beds for the patient for today. The patient also still tends to isolate herself. Otherwise, no side effects of medications. ASSESSMENT: The patient is still depressed, but not suicidal. TREATMENT PLAN: We will cancel the discharge of the patient today. Also, we will continue to work on adjusting medications and also on discharge plans. [facility]# [id number]
[2019-07-18] MEDS: Multivitamin Tab PO SCH (09:46)
--- NOTE | 2019-07-18 13:16 | Internal Medicine Prog Note ---
Internal Medicine Subjective - Subjective Patient is:: asleep, arousable, agitated, confused Patient Complaints of:: other (History of TIA, Gravely Disabled.) Per staff patient has:: no adverse event, no episodes of fall, other (refusing meds) Internal Medicine Objective - Results Recent Labs: Laboratory Last Values POC Glucose 108 MG/DL (70 - 105) H 07/09/19 19:33 - Physical Exam Vitals and I&O: Vital Signs Temp 96.9 F 07/18/19 06:26 Pulse 60 07/18/19 06:26 Resp 18 07/18/19 06:26 BP 113/62 07/18/19 06:26 Pulse Ox 96 07/18/19 06:26 Intake & Output 07/17/19 07/18/19 07/18/19 18:59 06:59 18:59 Intake Total 1200 300 Output Total 1 Balance 1200 299 Intake: Oral 1200 300 Output: Urine/Stool Mix 1 Other: # Voids 2 # Bowel Movements 1 0 Active Medications: Current Medications Acetaminophen (Tylenol) 650 mg PO Q4H PRN PRN Reason: Pain (Mild 1-3) Stop: 09/07/19 04:50 Al Hydrox/Mg Hydrox/Simethicone (Maalox) 30 ml PO Q4HR PRN PRN Reason: GI DISTRESS Stop: 09/07/19 04:50 Donepezil HCl (Aricept) 10 mg PO HS CORY Stop: 09/08/19 20:59 Last Admin: 07/17/19 20:48 Dose: 10 mg Lorazepam (Ativan) 0.5 mg PO Q4HR PRN; Protocol PRN Reason: Anxiety Stop: 08/08/19 04:50 Magnesium Hydroxide (Milk Of Magnesia) 30 ml PO HS PRN PRN Reason: Constipation Mirtazapine (Remeron) 15 mg PO HS CORY; Protocol Stop: 09/07/19 20:59 Last Admin: 07/17/19 20:48 Dose: 15 mg Multivitamins/Vitamin C (Theragran) 1 tab PO DAILY CORY Stop: 09/07/19 08:59 Last Admin: 07/18/19 09:46 Dose: 1 tab Risperidone (Risperdal) 1 mg PO BID CORY; Protocol Stop: 09/13/19 08:59 Last Admin: 07/18/19 09:46 Dose: 1 mg Valproate Sodium (Depakene) 500 mg PO BID CORY; Protocol Stop: 09/13/19 08:59 Last Admin: 07/18/19 09:47 Dose: 500 mg Zolpidem Tartrate (Ambien) 5 mg PO HS PRN PRN Reason: Insomnia Stop: 09/07/19 04:50 Last Admin: 07/17/19 23:33 Dose: 5 mg General: weak, demented, NAD HEENT: NC/AT, PERRLA Neck: Supple, No JVD Lungs: CTAB Cardiovascular: RRR, Normal S1, Normal S2 Abdomen: soft, non-tender, non-distended Extremities: clear Neurological: no change Internal Medicine Assmt/Plan - Assessment Assessment: Psychosis Agitation HTN TIA CVA GERD Depression Anxiety Alzheimer's disease - Plan Plan: Continue current treatment plan. Continue current medications Continue to monitor VS Monitor Diet/Nutritional support. Psych management per Psychiatry. Pain Management. PT/OT prn Safety precaution, Fall precaution, frequent nursing round. Supportive care. Continue collaborating with consulting specialists, case management and nursing team Nutritional Asmnt/Malnutr-PDOC - Dietary Evaluation Malnutrition Findings (Please click <Entered> for more info): Nutritional Asmnt/Malnutrition Start: 07/13/19 13: 53 Text: Status: Complete Freq: Protocol: Document 07/13/19 13:54 AMARA (Rec: 07/13/19 13:58 AMARA [email or web address]) Nutritional Asmnt/Malnutrition Patient General Information Nutritional Screening Moderate Risk Diagnosis Psychosis Pertinent Medical Hx/Surgical Hx HTN, TIA, CVA, GERD, Depression, Anxiety, Alzheimer s Disease Subjective Information Pt is a 68-year-old female admitted on 07/09 d/t psychosis . Pt is eating an estimated 50 % of meals since admit date ( x4 days) Per Meal/Nutrition Activity Record. Dietary is currently providing an estimated 2100 kcals and 100 gm Pro, per Pt PO intake this is providing an estimated 1050 kcals and 50gm Pro to meet 75 % kcal and 83% Pro needs. Anthropometrics HT: 55 WT: 126 LB (57.27 kg) BMI: 21.11 (Normal) GI/ Skin Integrity GI: WNL, Soft, Non-tender BM: Not Noted I/O: 300/Not Noted Skin: WNL, Intact Romel: 17 Diet Order: Mechanical Soft, JESSICA Estimated Energy Needs: ( Geriatric, CBW) 7945-5231 kcals (25-30 kcals/ kg) 60-70g Pro (1.0-1.2 g/kg) 7669-8171 ml (25-30 ml/kg) Current Diet Order/ Nutrition Support Mechanical Soft, JESSICA Pertinent Medications Maalox (PRN), MOM (PRN), Theragran Pertinent Labs 07/09: Glucose 143, BUN/Cr 22/0 .96, GFR 61, Urine Ketones- Trace, Urine Protein 1+ POC Glucose (07/09): 108 Nutritional Hx/Data Height 5 ft 5 in Height (Calculated Centimeters) 165.1 Current Weight (lbs) 126 lb Weight (Calculated Kilograms) 57.2 Weight (Calculated Grams) 00581.6 [place] Body Weight 125 LB (56.82 kg) % [place] Body Weight 100 Body Mass Index (BMI) 20.9 Weight Status Approriate GI Symptoms Last BM Not Noted Skin Integrity/Comment: Skin: WNL, Intact Romel: 17 Current %PO Fair (50-74%) Estimated Nutritional Goals BEE in Kcals: Using Current wt Calories/Kcals/Kg 25-30 Kcals Calculated 7833-9923 Protein: Using Current wt Protein g/k.0-1.2 Protein Calculated 60-70 Fluid: ml 5903-1863 ml (25-30 ml/kg) Nutritional Problem 1. Problem Problem Altered nutrition related labs Etiology r/t pathophysiological causes Signs/Symptoms: aeb labs (07/09): Glucose 143, BUN/Cr 22/0.96, GFR 61, Urine Ketones- Trace, Urine Protein 1+, POC Glucose (07/09): 108. Malnutrition Related to Morbid Obesity Malnutrition related to morbid obesity No Intervention/Recommendation Comments Continue Mechanical Soft, JESSICA diet as tolerated. Expected Outcomes/Goals Expected Outcomes/Goals 1.PO intake to continue to meet 75% of estimated nutritional needs. 2.Monitor PO intake, wt, nutrition related labs to trend WNL, and skin integrity. 3.F/U as moderate risk in 3-5 days, 07/16-07/18
--- NOTE | 2019-07-18 18:17 | Psych Progress Note ---
Psych Progress Note - Intro Date of Progress Note: 07/18/19 - Assessment Assessment: Patient interviewed, case discussed with staff, chart and records reviewed. Dr. Ma covering for Dr. Borjas. Per staff patient is significantly improved and was supposed to be discharged yesterday however bed was not available for the patient anymore. The patient since then continues to be confused and labile but much more redirectable no agitation episodes noted no side effects to medications noted. - Vitals, I&O Vitals: Vital Signs - 24 hr 07/17/19 07/18/19 07/18/19 20:04 06:26 08:00 Temp 97.8 F 96.9 F HR 81 60 RR 20 18 18 BP 121/61 113/62 O2 Sat % 96 96 - Plan Plan: Continue current treatment plan and monitor for behaviors. Pending placement. - Review of Relevant Data Review of Relevant Data: I have reviewed the following items and time una (where applicable) has been applied. - Medications Current Medications: Current Medications Acetaminophen (Tylenol) 650 mg PO Q4H PRN PRN Reason: Pain (Mild 1-3) Stop: 09/07/19 04:50 Al Hydrox/Mg Hydrox/Simethicone (Maalox) 30 ml PO Q4HR PRN PRN Reason: GI DISTRESS Stop: 09/07/19 04:50 Donepezil HCl (Aricept) 10 mg PO HS CORY Stop: 09/08/19 20:59 Last Admin: 07/17/19 20:48 Dose: 10 mg Lorazepam (Ativan) 0.5 mg PO Q4HR PRN; Protocol PRN Reason: Anxiety Stop: 08/08/19 04:50 Magnesium Hydroxide (Milk Of Magnesia) 30 ml PO HS PRN PRN Reason: Constipation Mirtazapine (Remeron) 15 mg PO HS CORY; Protocol Stop: 09/07/19 20:59 Last Admin: 07/17/19 20:48 Dose: 15 mg Multivitamins/Vitamin C (Theragran) 1 tab PO DAILY CORY Stop: 09/07/19 08:59 Last Admin: 07/18/19 09:46 Dose: 1 tab Risperidone (Risperdal) 1 mg PO BID CORY; Protocol Stop: 09/13/19 08:59 Last Admin: 07/18/19 17:50 Dose: 1 mg Valproate Sodium (Depakene) 500 mg PO BID [facility]; Protocol Stop: 09/13/19 08:59 Last Admin: 07/18/19 17:51 Dose: 500 mg Zolpidem Tartrate (Ambien) 5 mg PO HS PRN PRN Reason: Insomnia Stop: 09/07/19 04:50 Last Admin: 07/17/19 23:33 Dose: 5 mg
--- NOTE | 2019-07-19 08:00 | Progress Notes ---
DATE: 07/19/2019 SUBJECTIVE: The patient is in the hospital sleeping, arousable, refusing to speak with me. Per nursing staff, she seems to be calmer. No overt agitation, pending a safe discharge plan. Medications were noted. Sometimes irritated, but not aggressive. Ongoing disorientation, likely at her baseline. Medications were reviewed. JOB# [id number]
[2019-07-19] MEDS: Multivitamin Tab PO SCH (09:55)
--- NOTE | 2019-07-19 11:40 | Internal Medicine Prog Note ---
Internal Medicine Subjective - Subjective Patient is:: asleep, arousable, agitated, confused Patient Complaints of:: other (History of TIA, Gravely Disabled.) Per staff patient has:: no adverse event, no episodes of fall, other (refusing meds) Internal Medicine Objective - Results Recent Labs: Laboratory Last Values POC Glucose 108 MG/DL (70 - 105) H 07/09/19 19:33 - Physical Exam Vitals and I&O: Vital Signs Temp 96.6 F 07/19/19 06:04 Pulse 70 07/19/19 06:04 Resp 18 07/19/19 08:00 BP 131/63 07/19/19 06:04 Pulse Ox 99 07/19/19 06:04 Intake & Output 07/18/19 07/19/19 07/19/19 18:59 06:59 18:59 Intake Total 850 480 Balance 850 480 Intake: Oral 850 480 Other: # Voids 3 1 # Bowel Movements 0 1 Active Medications: Current Medications Acetaminophen (Tylenol) 650 mg PO Q4H PRN PRN Reason: Pain (Mild 1-3) Stop: 09/07/19 04:50 Al Hydrox/Mg Hydrox/Simethicone (Maalox) 30 ml PO Q4HR PRN PRN Reason: GI DISTRESS Stop: 09/07/19 04:50 Donepezil HCl (Aricept) 10 mg PO HS CORY Stop: 09/08/19 20:59 Last Admin: 07/18/19 20:54 Dose: 10 mg Lorazepam (Ativan) 0.5 mg PO Q4HR PRN; Protocol PRN Reason: Anxiety Stop: 08/08/19 04:50 Magnesium Hydroxide (Milk Of Magnesia) 30 ml PO HS PRN PRN Reason: Constipation Mirtazapine (Remeron) 15 mg PO HS CORY; Protocol Stop: 09/07/19 20:59 Last Admin: 07/18/19 20:54 Dose: 15 mg Multivitamins/Vitamin C (Theragran) 1 tab PO DAILY CORY Stop: 09/07/19 08:59 Last Admin: 07/19/19 09:55 Dose: 1 tab Risperidone (Risperdal) 1 mg PO BID CORY; Protocol Stop: 09/13/19 08:59 Last Admin: 07/19/19 09:55 Dose: 1 mg Valproate Sodium (Depakene) 500 mg PO BID CORY; Protocol Stop: 09/13/19 08:59 Last Admin: 07/19/19 09:54 Dose: 500 mg Zolpidem Tartrate (Ambien) 5 mg PO HS PRN PRN Reason: Insomnia Stop: 09/07/19 04:50 Last Admin: 07/18/19 20:55 Dose: 5 mg General: weak, demented, NAD HEENT: NC/AT, PERRLA Neck: Supple, No JVD Lungs: CTAB Cardiovascular: RRR, Normal S1, Normal S2 Abdomen: soft, non-tender, non-distended Extremities: clear Neurological: no change Internal Medicine Assmt/Plan - Assessment Assessment: Psychosis Agitation HTN TIA CVA GERD Depression Anxiety Alzheimer's disease - Plan Plan: Continue current treatment plan. Continue current medications Continue to monitor VS Monitor Diet/Nutritional support. Psych management per Psychiatry. Pain Management. PT/OT prn Safety precaution, Fall precaution, frequent nursing round. Supportive care. Continue collaborating with consulting specialists, case management and nursing team Nutritional Asmnt/Malnutr-PDOC - Dietary Evaluation Malnutrition Findings (Please click <Entered> for more info): Nutritional Asmnt/Malnutrition Start: 07/13/19 13: 53 Text: Status: Complete Freq: Protocol: Document 07/13/19 13:54 AMARA (Rec: 07/13/19 13:58 AMARA [email or web address]) Nutritional Asmnt/Malnutrition Patient General Information Nutritional Screening Moderate Risk Diagnosis Psychosis Pertinent Medical Hx/Surgical Hx HTN, TIA, CVA, GERD, Depression, Anxiety, Alzheimer s Disease Subjective Information Pt is a 68-year-old female admitted on 07/09 d/t psychosis . Pt is eating an estimated 50 % of meals since admit date ( x4 days) Per Meal/Nutrition Activity Record. Dietary is currently providing an estimated 2100 kcals and 100 gm Pro, per Pt PO intake this is providing an estimated 1050 kcals and 50gm Pro to meet 75 % kcal and 83% Pro needs. Anthropometrics HT: 55 WT: 126 LB (57.27 kg) BMI: 21.11 (Normal) GI/ Skin Integrity GI: WNL, Soft, Non-tender BM: Not Noted I/O: 300/Not Noted Skin: WNL, Intact Romel: 17 Diet Order: Mechanical Soft, JESSICA Estimated Energy Needs: ( Geriatric, CBW) 6737-0913 kcals (25-30 kcals/ kg) 60-70g Pro (1.0-1.2 g/kg) 3507-1060 ml (25-30 ml/kg) Current Diet Order/ Nutrition Support Mechanical Soft, JESSICA Pertinent Medications Maalox (PRN), MOM (PRN), Theragran Pertinent Labs 07/09: Glucose 143, BUN/Cr 22/0 .96, GFR 61, Urine Ketones- Trace, Urine Protein 1+ POC Glucose (07/09): 108 Nutritional Hx/Data Height 5 ft 5 in Height (Calculated Centimeters) 165.1 Current Weight (lbs) 126 lb Weight (Calculated Kilograms) 57.2 Weight (Calculated Grams) 60106.6 [place] Body Weight 125 LB (56.82 kg) % [place] Body Weight 100 Body Mass Index (BMI) 20.9 Weight Status Approriate GI Symptoms Last BM Not Noted Skin Integrity/Comment: Skin: WNL, Intact Romel: 17 Current %PO Fair (50-74%) Estimated Nutritional Goals BEE in Kcals: Using Current wt Calories/Kcals/Kg 25-30 Kcals Calculated 0672-3343 Protein: Using Current wt Protein g/k.0-1.2 Protein Calculated 60-70 Fluid: ml 0361-1227 ml (25-30 ml/kg) Nutritional Problem 1. Problem Problem Altered nutrition related labs Etiology r/t pathophysiological causes Signs/Symptoms: aeb labs (07/09): Glucose 143, BUN/Cr 22/0.96, GFR 61, Urine Ketones- Trace, Urine Protein 1+, POC Glucose (07/09): 108. Malnutrition Related to Morbid Obesity Malnutrition related to morbid obesity No Intervention/Recommendation Comments Continue Mechanical Soft, JESSICA diet as tolerated. Expected Outcomes/Goals Expected Outcomes/Goals 1.PO intake to continue to meet 75% of estimated nutritional needs. 2.Monitor PO intake, wt, nutrition related labs to trend WNL, and skin integrity. 3.F/U as moderate risk in 3-5 days, 07/16-07/18
[2019-07-20] MEDS: Multivitamin Tab PO SCH (08:23)
--- NOTE | 2019-07-20 12:55 | Internal Medicine Prog Note ---
Internal Medicine Subjective - Subjective Service Date: 07/20/19 Patient seen and examined:: with staff Patient is:: asleep, arousable, agitated, confused Patient Complaints of:: other (History of TIA, Gravely Disabled.) Per staff patient has:: no adverse event, no episodes of fall, other (refusing meds) Internal Medicine Objective - Results Recent Labs: Laboratory Last Values POC Glucose 108 MG/DL (70 - 105) H 07/09/19 19:33 - Physical Exam Vitals and I&O: Vital Signs Temp 96.8 F 07/20/19 06:57 Pulse 61 07/20/19 06:57 Resp 18 07/20/19 07:44 BP 129/59 07/20/19 06:57 Pulse Ox 97 07/20/19 06:57 Intake & Output 07/19/19 07/20/19 07/20/19 18:59 06:59 18:59 Intake Total 800 120 Output Total 1 Balance 800 119 Intake: Oral 800 120 Output: Urine/Stool Mix 1 Other: # Voids 3 3 # Bowel Movements 0 1 Active Medications: Current Medications Acetaminophen (Tylenol) 650 mg PO Q4H PRN PRN Reason: Pain (Mild 1-3) Stop: 09/07/19 04:50 Al Hydrox/Mg Hydrox/Simethicone (Maalox) 30 ml PO Q4HR PRN PRN Reason: GI DISTRESS Stop: 09/07/19 04:50 Donepezil HCl (Aricept) 10 mg PO HS CORY Stop: 09/08/19 20:59 Last Admin: 07/19/19 21:03 Dose: 10 mg Lorazepam (Ativan) 0.5 mg PO Q4HR PRN; Protocol PRN Reason: Anxiety Stop: 08/08/19 04:50 Magnesium Hydroxide (Milk Of Magnesia) 30 ml PO HS PRN PRN Reason: Constipation Mirtazapine (Remeron) 15 mg PO HS CORY; Protocol Stop: 09/07/19 20:59 Last Admin: 07/19/19 21:04 Dose: 15 mg Multivitamins/Vitamin C (Theragran) 1 tab PO DAILY CORY Stop: 09/07/19 08:59 Last Admin: 07/20/19 08:23 Dose: 1 tab Risperidone (Risperdal) 1 mg PO BID CORY; Protocol Stop: 09/13/19 08:59 Last Admin: 07/20/19 08:23 Dose: 1 mg Valproate Sodium (Depakene) 500 mg PO BID CORY; Protocol Stop: 09/13/19 08:59 Last Admin: 07/20/19 08:23 Dose: 500 mg Zolpidem Tartrate (Ambien) 5 mg PO HS PRN PRN Reason: Insomnia Stop: 09/07/19 04:50 Last Admin: 07/18/19 20:55 Dose: 5 mg Physical Exam: Patient was supposed to discharged but there were no beds available at [facility]. General: weak, demented, NAD HEENT: NC/AT, PERRLA Neck: Supple, No JVD Lungs: CTAB Cardiovascular: RRR, Normal S1, Normal S2 Abdomen: soft, non-tender, non-distended Extremities: clear Neurological: no change Internal Medicine Assmt/Plan - Assessment Assessment: Gravely disabled, was on 5150 Hold. Anxiety. Alzheimer's disease. Hypertension. Gerd. Depression. History of TIA. - Plan Plan: Psych management as per Psych. Continue meds as directed. Monitor diet and nutritional support. Supportive care. Monitor vitals and labs. Continue current treatment plan as ordered. Nutritional Asmnt/Malnutr-PDOC - Dietary Evaluation Malnutrition Findings (Please click <Entered> for more info): Nutritional Asmnt/Malnutrition Start: 07/13/19 13: 53 Text: Status: Complete Freq: Protocol: Document 07/13/19 13:54 AMARA (Rec: 07/13/19 13:58 AMARA [email or web address]) Nutritional Asmnt/Malnutrition Patient General Information Nutritional Screening Moderate Risk Diagnosis Psychosis Pertinent Medical Hx/Surgical Hx HTN, TIA, CVA, GERD, Depression, Anxiety, Alzheimer s Disease Subjective Information Pt is a 68-year-old female admitted on 07/09 d/t psychosis . Pt is eating an estimated 50 % of meals since admit date ( x4 days) Per Meal/Nutrition Activity Record. Dietary is currently providing an estimated 2100 kcals and 100 gm Pro, per Pt PO intake this is providing an estimated 1050 kcals and 50gm Pro to meet 75 % kcal and 83% Pro needs. Anthropometrics HT: 55 WT: 126 LB (57.27 kg) BMI: 21.11 (Normal) GI/ Skin Integrity GI: WNL, Soft, Non-tender BM: Not Noted I/O: 300/Not Noted Skin: WNL, Intact Romel: 17 Diet Order: Mechanical Soft, JESSICA Estimated Energy Needs: ( Geriatric, CBW) 2740-5917 kcals (25-30 kcals/ kg) 60-70g Pro (1.0-1.2 g/kg) 2068-9713 ml (25-30 ml/kg) Current Diet Order/ Nutrition Support Mechanical Soft, JESSICA Pertinent Medications Maalox (PRN), MOM (PRN), Theragran Pertinent Labs 07/09: Glucose 143, BUN/Cr 22/0 .96, GFR 61, Urine Ketones- Trace, Urine Protein 1+ POC Glucose (07/09): 108 Nutritional Hx/Data Height 1.65 m Height (Calculated Centimeters) 165.1 Current Weight (lbs) 57.153 kg Weight (Calculated Kilograms) 57.2 Weight (Calculated Grams) 12229.6 [place] Body Weight 125 LB (56.82 kg) % [place] Body Weight 100 Body Mass Index (BMI) 20.9 Weight Status Approriate GI Symptoms Last BM Not Noted Skin Integrity/Comment: Skin: WNL, Intact Romel: 17 Current %PO Fair (50-74%) Estimated Nutritional Goals BEE in Kcals: Using Current wt Calories/Kcals/Kg 25-30 Kcals Calculated 0615-2133 Protein: Using Current wt Protein g/k.0-1.2 Protein Calculated 60-70 Fluid: ml 1663-5482 ml (25-30 ml/kg) Nutritional Problem 1. Problem Problem Altered nutrition related labs Etiology r/t pathophysiological causes Signs/Symptoms: aeb labs (07/09): Glucose 143, BUN/Cr 22/0.96, GFR 61, Urine Ketones- Trace, Urine Protein 1+, POC Glucose (07/09): 108. Malnutrition Related to Morbid Obesity Malnutrition related to morbid obesity No Intervention/Recommendation Comments Continue Mechanical Soft, JESSICA diet as tolerated. Expected Outcomes/Goals Expected Outcomes/Goals 1.PO intake to continue to meet 75% of estimated nutritional needs. 2.Monitor PO intake, wt, nutrition related labs to trend WNL, and skin integrity. 3.F/U as moderate risk in 3-5 days, 07/16-07/18
[2019-07-20 16:06] VITALS: BP 142/53
[2019-07-21] MEDS: Multivitamin Tab PO SCH (09:06)
--- NOTE | 2019-07-21 09:28 | Progress Notes ---
DATE: SUBJECTIVE: Chart was reviewed and the patient interviewed. Also discussed the patient's condition with the staff and reviewed records and labs. The patient's affect is brighter. The patient is less irritable and less agitated. The patient also is slightly easier to redirect her. The patient denies any side effects of medications and she denied any thoughts of suicide or homicide. ASSESSMENT: The patient is still psychotic, but seems to be less agitated and less irritable. TREATMENT PLAN: Continue to monitor behavior and condition. Also, continue to work on discharge plans and placement issue. [facility] still has no bed available for the patient to return. JOB# [id number]
--- NOTE | 2019-07-21 15:46 | Internal Medicine Prog Note ---
Internal Medicine Subjective - Subjective Service Date: 07/21/19 Patient is:: asleep, arousable, agitated, confused Patient Complaints of:: other (History of TIA, Gravely Disabled.) Per staff patient has:: no adverse event, no episodes of fall, other (refusing meds) Internal Medicine Objective - Results Recent Labs: Laboratory Last Values POC Glucose 108 MG/DL (70 - 105) H 07/09/19 19:33 - Physical Exam Vitals and I&O: Vital Signs Temp 97.0 F 07/21/19 14:00 Pulse 58 07/21/19 14:00 Resp 18 07/21/19 14:00 BP 110/62 07/21/19 14:00 Pulse Ox 95 07/21/19 14:00 Intake & Output 07/20/19 07/21/19 07/21/19 18:59 06:59 18:59 Intake Total 120 Balance 120 Intake: Oral 120 Other: # Voids 3 3 # Bowel Movements 0 0 Active Medications: Current Medications Acetaminophen (Tylenol) 650 mg PO Q4H PRN PRN Reason: Pain (Mild 1-3) Stop: 09/07/19 04:50 Al Hydrox/Mg Hydrox/Simethicone (Maalox) 30 ml PO Q4HR PRN PRN Reason: GI DISTRESS Stop: 09/07/19 04:50 Donepezil HCl (Aricept) 10 mg PO HS CORY Stop: 09/08/19 20:59 Last Admin: 07/20/19 21:24 Dose: 10 mg Lorazepam (Ativan) 0.5 mg PO Q4HR PRN; Protocol PRN Reason: Anxiety Stop: 08/08/19 04:50 Last Admin: 07/21/19 02:08 Dose: 0.5 mg Magnesium Hydroxide (Milk Of Magnesia) 30 ml PO HS PRN PRN Reason: Constipation Mirtazapine (Remeron) 15 mg PO HS CORY; Protocol Stop: 09/07/19 20:59 Last Admin: 07/20/19 21:25 Dose: 15 mg Multivitamins/Vitamin C (Theragran) 1 tab PO DAILY CORY Stop: 09/07/19 08:59 Last Admin: 07/21/19 09:06 Dose: 1 tab Risperidone (Risperdal) 1 mg PO BID CORY; Protocol Stop: 09/13/19 08:59 Last Admin: 07/21/19 09:06 Dose: 1 mg Valproate Sodium (Depakene) 500 mg PO BID CORY; Protocol Stop: 09/13/19 08:59 Last Admin: 07/21/19 09:06 Dose: 500 mg Zolpidem Tartrate (Ambien) 5 mg PO HS PRN PRN Reason: Insomnia Stop: 09/07/19 04:50 Last Admin: 07/20/19 21:25 Dose: 5 mg General: weak, demented, NAD HEENT: NC/AT, PERRLA Neck: Supple, No JVD Lungs: CTAB Cardiovascular: RRR, Normal S1, Normal S2 Abdomen: soft, non-tender, non-distended Extremities: clear Neurological: no change Internal Medicine Assmt/Plan - Assessment Assessment: Psychosis Agitation HTN TIA CVA GERD Depression Anxiety Alzheimer's disease - Plan Plan: Continue current treatment plan. Continue current medications Continue to monitor VS Monitor Diet/Nutritional support. Psych management per Psychiatry. Pain Management. PT/OT prn Safety precaution, Fall precaution, frequent nursing round. Supportive care. Continue collaborating with consulting specialists, case management and nursing team Nutritional Asmnt/Malnutr-PDOC - Dietary Evaluation Malnutrition Findings (Please click <Entered> for more info): Nutritional Asmnt/Malnutrition Start: 07/13/19 13: 53 Text: Status: Complete Freq: Protocol: Document 07/13/19 13:54 AMARA (Rec: 07/13/19 13:58 AMARA [email or web address]) Nutritional Asmnt/Malnutrition Patient General Information Nutritional Screening Moderate Risk Diagnosis Psychosis Pertinent Medical Hx/Surgical Hx HTN, TIA, CVA, GERD, Depression, Anxiety, Alzheimer s Disease Subjective Information Pt is a 68-year-old female admitted on 07/09 d/t psychosis . Pt is eating an estimated 50 % of meals since admit date ( x4 days) Per Meal/Nutrition Activity Record. Dietary is currently providing an estimated 2100 kcals and 100 gm Pro, per Pt PO intake this is providing an estimated 1050 kcals and 50gm Pro to meet 75 % kcal and 83% Pro needs. Anthropometrics HT: 55 WT: 126 LB (57.27 kg) BMI: 21.11 (Normal) GI/ Skin Integrity GI: WNL, Soft, Non-tender BM: Not Noted I/O: 300/Not Noted Skin: WNL, Intact Romel: 17 Diet Order: Mechanical Soft, JESSICA Estimated Energy Needs: ( Geriatric, CBW) 4746-3667 kcals (25-30 kcals/ kg) 60-70g Pro (1.0-1.2 g/kg) 0311-4529 ml (25-30 ml/kg) Current Diet Order/ Nutrition Support Mechanical Soft, JESSICA Pertinent Medications Maalox (PRN), MOM (PRN), Theragran Pertinent Labs 07/09: Glucose 143, BUN/Cr 22/0 .96, GFR 61, Urine Ketones- Trace, Urine Protein 1+ POC Glucose (07/09): 108 Nutritional Hx/Data Height 5 ft 5 in Height (Calculated Centimeters) 165.1 Current Weight (lbs) 126 lb Weight (Calculated Kilograms) 57.2 Weight (Calculated Grams) 09834.6 [place] Body Weight 125 LB (56.82 kg) % [place] Body Weight 100 Body Mass Index (BMI) 20.9 Weight Status Approriate GI Symptoms Last BM Not Noted Skin Integrity/Comment: Skin: WNL, Intact Romel: 17 Current %PO Fair (50-74%) Estimated Nutritional Goals BEE in Kcals: Using Current wt Calories/Kcals/Kg 25-30 Kcals Calculated 6085-0792 Protein: Using Current wt Protein g/k.0-1.2 Protein Calculated 60-70 Fluid: ml 2560-7842 ml (25-30 ml/kg) Nutritional Problem 1. Problem Problem Altered nutrition related labs Etiology r/t pathophysiological causes Signs/Symptoms: aeb labs (07/09): Glucose 143, BUN/Cr 22/0.96, GFR 61, Urine Ketones- Trace, Urine Protein 1+, POC Glucose (07/09): 108. Malnutrition Related to Morbid Obesity Malnutrition related to morbid obesity No Intervention/Recommendation Comments Continue Mechanical Soft, JESSICA diet as tolerated. Expected Outcomes/Goals Expected Outcomes/Goals 1.PO intake to continue to meet 75% of estimated nutritional needs. 2.Monitor PO intake, wt, nutrition related labs to trend WNL, and skin integrity. 3.F/U as moderate risk in 3-5 days, 07/16-07/18
--- NOTE | 2019-07-21 16:32 | Progress Notes ---
DATE: PSYCHIATRIC PROGRESS NOTE SUBJECTIVE: Chart was reviewed and the patient interviewed. Also discussed the patient's condition with the staff and reviewed records and labs. The patient continued to be confused and forgetful. The patient also is still unable to express herself appropriately or to tell her needs known. She also is still guarded and withdrawn and easily agitated, especially when helping her with her ADLs. Otherwise, the patient continued to comply with taking her medications with no side effects. Also, her appetite is slightly improved, but still needs prompt instructions to eat. ASSESSMENT: The patient is still confused and anxious. TREATMENT PLAN: We will continue monitoring behavior and condition closely. Also, we will continue adjusting psychotropic medications. Also, we will get Depakote blood level today and continue to follow up. JOB# [id number]
--- NOTE | 2019-07-22 07:16 | Progress Notes ---
DATE: SUBJECTIVE: Chart was reviewed and the patient interviewed. Also discussed the patient's condition with the staff and reviewed records and labs. The patient is still confused and she is still anxious. The patient also is still easily agitated. The patient also is still suspicious and is still paranoid. She also still has severe mood swings. Otherwise, the patient is compliant with taking her medications with no side effects of medications. ASSESSMENT: The patient is still confused and still needs close monitoring. TREATMENT PLAN: We will continue to monitor her behavior and her condition closely. Also, we will continue adjusting psychotropic medications and working on behavioral modifications. JOB# [id number]
[2019-07-22] MEDS: Multivitamin Tab PO SCH (08:43)
--- NOTE | 2019-07-22 15:23 | Internal Medicine Prog Note ---
Internal Medicine Subjective - Subjective Service Date: 07/22/19 Patient seen and examined:: with staff Patient is:: asleep, arousable, agitated, confused Patient Complaints of:: other (History of TIA, Gravely Disabled.) Per staff patient has:: no adverse event, no episodes of fall, other (refusing meds) Internal Medicine Objective - Results Recent Labs: Laboratory Last Values POC Glucose 108 MG/DL (70 - 105) H 07/09/19 19:33 - Physical Exam Vitals and I&O: Vital Signs Temp 97.1 F 07/22/19 06:25 Pulse 60 07/22/19 06:25 Resp 17 07/22/19 08:00 BP 133/60 07/22/19 06:25 Pulse Ox 100 07/22/19 06:25 Intake & Output 07/21/19 07/22/19 07/22/19 18:59 06:59 18:59 Intake Total 700 120 Balance 700 120 Intake: Oral 700 120 Other: # Voids 2 3 # Bowel Movements 0 1 Active Medications: Current Medications Acetaminophen (Tylenol) 650 mg PO Q4H PRN PRN Reason: Pain (Mild 1-3) Stop: 09/07/19 04:50 Al Hydrox/Mg Hydrox/Simethicone (Maalox) 30 ml PO Q4HR PRN PRN Reason: GI DISTRESS Stop: 09/07/19 04:50 Donepezil HCl (Aricept) 10 mg PO HS CORY Stop: 09/08/19 20:59 Last Admin: 07/21/19 20:43 Dose: 10 mg Lorazepam (Ativan) 0.5 mg PO Q4HR PRN; Protocol PRN Reason: Anxiety Stop: 08/08/19 04:50 Last Admin: 07/21/19 22:17 Dose: 0.5 mg Magnesium Hydroxide (Milk Of Magnesia) 30 ml PO HS PRN PRN Reason: Constipation Mirtazapine (Remeron) 15 mg PO HS CORY; Protocol Stop: 09/07/19 20:59 Last Admin: 07/21/19 20:43 Dose: 15 mg Multivitamins/Vitamin C (Theragran) 1 tab PO DAILY CORY Stop: 09/07/19 08:59 Last Admin: 07/22/19 08:43 Dose: 1 tab Risperidone (Risperdal) 1 mg PO BID CORY; Protocol Stop: 09/13/19 08:59 Last Admin: 07/22/19 08:43 Dose: 1 mg Valproate Sodium (Depakene) 500 mg PO BID CORY; Protocol Stop: 09/13/19 08:59 Last Admin: 07/22/19 08:43 Dose: 500 mg Zolpidem Tartrate (Ambien) 5 mg PO HS PRN PRN Reason: Insomnia Stop: 09/07/19 04:50 Last Admin: 07/21/19 20:43 Dose: 5 mg Physical Exam: Patient continues to be very dis-oriented, restless and anxious, needs to be closely monitored. General: weak, demented, NAD HEENT: NC/AT, PERRLA Neck: Supple, No JVD Lungs: CTAB Cardiovascular: RRR, Normal S1, Normal S2 Abdomen: soft, non-tender, non-distended Extremities: clear Neurological: no change Internal Medicine Assmt/Plan - Assessment Assessment: Gravely disabled, was on 5150 Hold. Anxiety. Alzheimer's disease. Hypertension. Gerd. Depression. History of TIA. - Plan Plan: Psych management as per Psych. Continue meds as directed. Monitor diet and nutritional support. Supportive care. Monitor vitals and labs. Continue current treatment plan as ordered. Nutritional Asmnt/Malnutr-PDOC - Dietary Evaluation Malnutrition Findings (Please click <Entered> for more info): Nutritional Asmnt/Malnutrition Start: 07/13/19 13: 53 Text: Status: Complete Freq: Protocol: Document 07/13/19 13:54 AMARA (Rec: 07/13/19 13:58 AMARA [email or web address]) Nutritional Asmnt/Malnutrition Patient General Information Nutritional Screening Moderate Risk Diagnosis Psychosis Pertinent Medical Hx/Surgical Hx HTN, TIA, CVA, GERD, Depression, Anxiety, Alzheimer s Disease Subjective Information Pt is a 68-year-old female admitted on 07/09 d/t psychosis . Pt is eating an estimated 50 % of meals since admit date ( x4 days) Per Meal/Nutrition Activity Record. Dietary is currently providing an estimated 2100 kcals and 100 gm Pro, per Pt PO intake this is providing an estimated 1050 kcals and 50gm Pro to meet 75 % kcal and 83% Pro needs. Anthropometrics HT: 55 WT: 126 LB (57.27 kg) BMI: 21.11 (Normal) GI/ Skin Integrity GI: WNL, Soft, Non-tender BM: Not Noted I/O: 300/Not Noted Skin: WNL, Intact Romel: 17 Diet Order: Mechanical Soft, JESSICA Estimated Energy Needs: ( Geriatric, CBW) 7314-5066 kcals (25-30 kcals/ kg) 60-70g Pro (1.0-1.2 g/kg) 6610-2556 ml (25-30 ml/kg) Current Diet Order/ Nutrition Support Mechanical Soft, JESSICA Pertinent Medications Maalox (PRN), MOM (PRN), Theragran Pertinent Labs 07/09: Glucose 143, BUN/Cr 22/0 .96, GFR 61, Urine Ketones- Trace, Urine Protein 1+ POC Glucose (07/09): 108 Nutritional Hx/Data Height 1.65 m Height (Calculated Centimeters) 165.1 Current Weight (lbs) 57.153 kg Weight (Calculated Kilograms) 57.2 Weight (Calculated Grams) 69987.6 [place] Body Weight 125 LB (56.82 kg) % [place] Body Weight 100 Body Mass Index (BMI) 20.9 Weight Status Approriate GI Symptoms Last BM Not Noted Skin Integrity/Comment: Skin: WNL, Intact Romel: 17 Current %PO Fair (50-74%) Estimated Nutritional Goals BEE in Kcals: Using Current wt Calories/Kcals/Kg 25-30 Kcals Calculated 6899-9765 Protein: Using Current wt Protein g/k.0-1.2 Protein Calculated 60-70 Fluid: ml 1327-6108 ml (25-30 ml/kg) Nutritional Problem 1. Problem Problem Altered nutrition related labs Etiology r/t pathophysiological causes Signs/Symptoms: aeb labs (07/09): Glucose 143, BUN/Cr 22/0.96, GFR 61, Urine Ketones- Trace, Urine Protein 1+, POC Glucose (07/09): 108. Malnutrition Related to Morbid Obesity Malnutrition related to morbid obesity No Intervention/Recommendation Comments Continue Mechanical Soft, JESSICA diet as tolerated. Expected Outcomes/Goals Expected Outcomes/Goals 1.PO intake to continue to meet 75% of estimated nutritional needs. 2.Monitor PO intake, wt, nutrition related labs to trend WNL, and skin integrity. 3.F/U as moderate risk in 3-5 days, 07/16-07/18
--- NOTE | 2019-07-23 08:35 | Progress Notes ---
DATE: SUBJECTIVE: Chart was reviewed and the patient interviewed. Also discussed the patient's condition with the staff and reviewed records and labs. The patient is still confused and anxious. The patient also is still easily agitated and easily irritable. The patient is also still having severe mood swings and has severe anxiety. Otherwise, the patient is interacting minimally with others and she still needs lots of redirections. ASSESSMENT: The patient is still confused and needs lots of redirections. TREATMENT PLAN: We will continue monitoring behavior and condition closely. Also, we will get a Depakote blood level. Also, discussed with [facility] where the patient lives, the return of the patient and hopefully, the patient tomorrow will be able to return there after we will get Depakote blood level and hopefully, she will be less paranoid. JOB# [id number]
[2019-07-23] MEDS: Multivitamin Tab PO SCH (08:57)
--- NOTE | 2019-07-23 13:27 | Internal Medicine Prog Note ---
Internal Medicine Subjective - Subjective Service Date: 07/23/19 Patient is:: asleep, arousable, agitated, confused Patient Complaints of:: other (History of TIA, Gravely Disabled.) Per staff patient has:: no adverse event, no episodes of fall, other (refusing meds) Internal Medicine Objective - Results Recent Labs: Laboratory Last Values POC Glucose 108 MG/DL (70 - 105) H 07/09/19 19:33 - Physical Exam Vitals and I&O: Vital Signs Temp 97.2 F 07/23/19 06:00 Pulse 72 07/23/19 06:00 Resp 17 07/23/19 07:19 BP 149/71 07/23/19 06:00 Pulse Ox 97 07/23/19 06:00 Intake & Output 07/22/19 07/23/19 07/23/19 18:59 06:59 18:59 Intake Total 1100 120 Balance 1100 120 Intake: Oral 1100 120 Other: # Voids 3 2 # Bowel Movements 0 0 Active Medications: Current Medications Acetaminophen (Tylenol) 650 mg PO Q4H PRN PRN Reason: Pain (Mild 1-3) Stop: 09/07/19 04:50 Al Hydrox/Mg Hydrox/Simethicone (Maalox) 30 ml PO Q4HR PRN PRN Reason: GI DISTRESS Stop: 09/07/19 04:50 Donepezil HCl (Aricept) 10 mg PO HS CORY Stop: 09/08/19 20:59 Last Admin: 07/22/19 20:29 Dose: 10 mg Lorazepam (Ativan) 0.5 mg PO Q4HR PRN; Protocol PRN Reason: Anxiety Stop: 08/08/19 04:50 Last Admin: 07/21/19 22:17 Dose: 0.5 mg Magnesium Hydroxide (Milk Of Magnesia) 30 ml PO HS PRN PRN Reason: Constipation Mirtazapine (Remeron) 15 mg PO HS CORY; Protocol Stop: 09/07/19 20:59 Last Admin: 07/22/19 20:29 Dose: 15 mg Multivitamins/Vitamin C (Theragran) 1 tab PO DAILY CORY Stop: 09/07/19 08:59 Last Admin: 07/23/19 08:57 Dose: 1 tab Risperidone (Risperdal) 1 mg PO BID CORY; Protocol Stop: 09/13/19 08:59 Last Admin: 07/23/19 08:57 Dose: 1 mg Valproate Sodium (Depakene) 500 mg PO BID CORY; Protocol Stop: 09/13/19 08:59 Last Admin: 07/23/19 08:57 Dose: 500 mg Zolpidem Tartrate (Ambien) 5 mg PO HS PRN PRN Reason: Insomnia Stop: 09/07/19 04:50 Last Admin: 07/23/19 00:14 Dose: 5 mg General: weak, demented, NAD HEENT: NC/AT, PERRLA Neck: Supple, No JVD Lungs: CTAB Cardiovascular: RRR, Normal S1, Normal S2 Abdomen: soft, non-tender, non-distended Extremities: clear Neurological: no change Internal Medicine Assmt/Plan - Assessment Assessment: Psychosis Agitation HTN TIA CVA GERD Depression Anxiety Alzheimer's disease - Plan Plan: Continue current treatment plan. Continue current medications Continue to monitor VS Monitor Diet/Nutritional support. Psych management per Psychiatry. Pain Management. PT/OT prn Safety precaution, Fall precaution, frequent nursing round. Supportive care. Continue collaborating with consulting specialists, case management and nursing team Nutritional Asmnt/Malnutr-PDOC - Dietary Evaluation Malnutrition Findings (Please click <Entered> for more info): Nutritional Asmnt/Malnutrition Start: 07/13/19 13: 53 Text: Status: Complete Freq: Protocol: Document 07/13/19 13:54 AMARA (Rec: 07/13/19 13:58 AMARA [email or web address]) Nutritional Asmnt/Malnutrition Patient General Information Nutritional Screening Moderate Risk Diagnosis Psychosis Pertinent Medical Hx/Surgical Hx HTN, TIA, CVA, GERD, Depression, Anxiety, Alzheimer s Disease Subjective Information Pt is a 68-year-old female admitted on 07/09 d/t psychosis . Pt is eating an estimated 50 % of meals since admit date ( x4 days) Per Meal/Nutrition Activity Record. Dietary is currently providing an estimated 2100 kcals and 100 gm Pro, per Pt PO intake this is providing an estimated 1050 kcals and 50gm Pro to meet 75 % kcal and 83% Pro needs. Anthropometrics HT: 55 WT: 126 LB (57.27 kg) BMI: 21.11 (Normal) GI/ Skin Integrity GI: WNL, Soft, Non-tender BM: Not Noted I/O: 300/Not Noted Skin: WNL, Intact Romel: 17 Diet Order: Mechanical Soft, JESSICA Estimated Energy Needs: ( Geriatric, CBW) 4427-9756 kcals (25-30 kcals/ kg) 60-70g Pro (1.0-1.2 g/kg) 4639-7322 ml (25-30 ml/kg) Current Diet Order/ Nutrition Support Mechanical Soft, JESSICA Pertinent Medications Maalox (PRN), MOM (PRN), Theragran Pertinent Labs 07/09: Glucose 143, BUN/Cr 22/0 .96, GFR 61, Urine Ketones- Trace, Urine Protein 1+ POC Glucose (07/09): 108 Nutritional Hx/Data Height 5 ft 5 in Height (Calculated Centimeters) 165.1 Current Weight (lbs) 126 lb Weight (Calculated Kilograms) 57.2 Weight (Calculated Grams) 25176.6 [place] Body Weight 125 LB (56.82 kg) % [place] Body Weight 100 Body Mass Index (BMI) 20.9 Weight Status Approriate GI Symptoms Last BM Not Noted Skin Integrity/Comment: Skin: WNL, Intact Romel: 17 Current %PO Fair (50-74%) Estimated Nutritional Goals BEE in Kcals: Using Current wt Calories/Kcals/Kg 25-30 Kcals Calculated 2934-4718 Protein: Using Current wt Protein g/k.0-1.2 Protein Calculated 60-70 Fluid: ml 5233-9501 ml (25-30 ml/kg) Nutritional Problem 1. Problem Problem Altered nutrition related labs Etiology r/t pathophysiological causes Signs/Symptoms: aeb labs (07/09): Glucose 143, BUN/Cr 22/0.96, GFR 61, Urine Ketones- Trace, Urine Protein 1+, POC Glucose (07/09): 108. Malnutrition Related to Morbid Obesity Malnutrition related to morbid obesity No Intervention/Recommendation Comments Continue Mechanical Soft, JESSICA diet as tolerated. Expected Outcomes/Goals Expected Outcomes/Goals 1.PO intake to continue to meet 75% of estimated nutritional needs. 2.Monitor PO intake, wt, nutrition related labs to trend WNL, and skin integrity. 3.F/U as moderate risk in 3-5 days, 07/16-07/18
--- NOTE | 2019-07-24 07:31 | Discharge Summary ---
DATE OF DISCHARGE: 07/24/2019 AGE: 68. SEX: Female. PHYSICIAN: Dr. Borjas. FINAL DIAGNOSES: PRIMARY DIAGNOSIS: Depressive mood disorder, severe, recurrent, with psychotic features. MEDICAL DIAGNOSES: 1. Transient ischemic attacks. 2. Hypertension. 3. Seizure disorder. 4. Cerebrovascular accident. 5. Gastroesophageal reflux disease. REASON FOR HOSPITALIZATION: The patient was admitted to the hospital from [facility] because of increased agitation and screaming and yelling and uncooperative and wanted to be left alone. HOSPITAL COURSE: The patient continued to be anxious and continued to be in a depressed mood. The patient also wanted to be left alone and she was withdrawn. The patient started on Remeron and dose adjusted to 50 mg at bedtime. Also, was continued to take Depakote and continued to take Risperdal. Gradually, the patient's affect was brighter. The patient was calmer and less agitated. The patient also interacted more with peers and with others. The patient also was in irritable and angry mood. She was easier to follow directions. The patient was discharged from the hospital. PHYSICAL EXAMINATION: Came as mentioned under final diagnosis. The patient had no major medical problems while in the hospital. AFTER DISCHARGE PLANS: The patient discharged from the hospital and returned to [facility] with plans for outpatient treatment. EXPECTED OUTCOME AFTER DISCHARGE: Fair if the patient continued to take her psychotropic medications and follow up with discharge plans. JOB# [id number]
[2019-07-24] MEDS: Multivitamin Tab PO SCH (08:07)
--- NOTE | 2019-07-24 11:47 | Internal Medicine Prog Note ---
Internal Medicine Subjective - Subjective Service Date: 07/24/19 Patient seen and examined:: with staff Patient is:: awake, arousable, agitated, confused Patient Complaints of:: other (History of TIA, Gravely Disabled.) Per staff patient has:: no adverse event, no episodes of fall, other (refusing meds) Internal Medicine Objective - Results Recent Labs: Laboratory Last Values POC Glucose 108 MG/DL (70 - 105) H 07/09/19 19:33 - Physical Exam Vitals and I&O: Vital Signs Temp 98.0 F 07/24/19 05:55 Pulse 71 07/24/19 05:55 Resp 17 07/24/19 07:35 BP 100/55 07/24/19 05:55 Pulse Ox 97 07/24/19 05:55 Intake & Output 07/23/19 07/24/19 07/24/19 18:59 06:59 18:59 Intake Total 600 180 Output Total 1 Balance 600 179 Intake: Oral 600 180 Output: Urine/Stool Mix 1 Other: # Voids 3 1 # Bowel Movements 0 1 Active Medications: Current Medications Acetaminophen (Tylenol) 650 mg PO Q4H PRN PRN Reason: Pain (Mild 1-3) Stop: 09/07/19 04:50 Last Admin: 07/23/19 14:38 Dose: 650 mg Al Hydrox/Mg Hydrox/Simethicone (Maalox) 30 ml PO Q4HR PRN PRN Reason: GI DISTRESS Stop: 09/07/19 04:50 Donepezil HCl (Aricept) 10 mg PO HS CORY Stop: 09/08/19 20:59 Last Admin: 07/23/19 20:42 Dose: 10 mg Lorazepam (Ativan) 0.5 mg PO Q4HR PRN; Protocol PRN Reason: Anxiety Stop: 08/08/19 04:50 Last Admin: 07/24/19 08:07 Dose: 0.5 mg Magnesium Hydroxide (Milk Of Magnesia) 30 ml PO HS PRN PRN Reason: Constipation Mirtazapine (Remeron) 15 mg PO HS CORY; Protocol Stop: 09/07/19 20:59 Last Admin: 07/23/19 20:42 Dose: 15 mg Multivitamins/Vitamin C (Theragran) 1 tab PO DAILY CORY Stop: 09/07/19 08:59 Last Admin: 07/24/19 08:07 Dose: 1 tab Risperidone (Risperdal) 1 mg PO BID [facility]; Protocol Stop: 09/13/19 08:59 Last Admin: 07/24/19 08:07 Dose: 1 mg Valproate Sodium (Depakene) 500 mg PO BID [facility]; Protocol Stop: 09/13/19 08:59 Last Admin: 07/24/19 08:07 Dose: 500 mg Zolpidem Tartrate (Ambien) 5 mg PO HS PRN PRN Reason: Insomnia Stop: 09/07/19 04:50 Last Admin: 07/23/19 20:43 Dose: 5 mg Physical Exam: Patient is being discharged to [facility] and will continue present care management. General: weak, demented, NAD HEENT: NC/AT, PERRLA Neck: Supple, No JVD Lungs: CTAB Cardiovascular: RRR, Normal S1, Normal S2 Abdomen: soft, non-tender, non-distended Extremities: clear Neurological: no change Internal Medicine Assmt/Plan - Assessment Assessment: Gravely disabled, was on 5150 Hold. Anxiety. Alzheimer's disease. Hypertension. Gerd. Depressive mood disorder, severe with Psychotic features. History of TIA. - Plan Plan: Discharge planning. Nutritional Asmnt/Malnutr-PDOC - Dietary Evaluation Malnutrition Findings (Please click <Entered> for more info): Nutritional Asmnt/Malnutrition Start: 07/13/19 13: 53 Text: Status: Complete Freq: Protocol: Document 07/13/19 13:54 AMARA (Rec: 07/13/19 13:58 AMARA [id number]) Nutritional Asmnt/Malnutrition Patient General Information Nutritional Screening Moderate Risk Diagnosis Psychosis Pertinent Medical Hx/Surgical Hx HTN, TIA, CVA, GERD, Depression, Anxiety, Alzheimer s Disease Subjective Information Pt is a 68-year-old female admitted on 07/09 d/t psychosis . Pt is eating an estimated 50 % of meals since admit date ( x4 days) Per Meal/Nutrition Activity Record. Dietary is currently providing an estimated 2100 kcals and 100 gm Pro, per Pt PO intake this is providing an estimated 1050 kcals and 50gm Pro to meet 75 % kcal and 83% Pro needs. Anthropometrics HT: 55 WT: 126 LB (57.27 kg) BMI: 21.11 (Normal) GI/ Skin Integrity GI: WNL, Soft, Non-tender BM: Not Noted I/O: 300/Not Noted Skin: WNL, Intact Romel: 17 Diet Order: Mechanical Soft, JESSICA Estimated Energy Needs: ( Geriatric, CBW) 7280-1306 kcals (25-30 kcals/ kg) 60-70g Pro (1.0-1.2 g/kg) 6746-1404 ml (25-30 ml/kg) Current Diet Order/ Nutrition Support Mechanical Soft, JESSICA Pertinent Medications Maalox (PRN), MOM (PRN), Theragran Pertinent Labs 07/09: Glucose 143, BUN/Cr 22/0 .96, GFR 61, Urine Ketones- Trace, Urine Protein 1+ POC Glucose (07/09): 108 Nutritional Hx/Data Height 1.65 m Height (Calculated Centimeters) 165.1 Current Weight (lbs) 57.153 kg Weight (Calculated Kilograms) 57.2 Weight (Calculated Grams) 37957.6 Stanton Body Weight 125 LB (56.82 kg) % Stanton Body Weight 100 Body Mass Index (BMI) 20.9 Weight Status Approriate GI Symptoms Last BM Not Noted Skin Integrity/Comment: Skin: WNL, Intact Romel: 17 Current %PO Fair (50-74%) Estimated Nutritional Goals BEE in Kcals: Using Current wt Calories/Kcals/Kg 25-30 Kcals Calculated 6164-7427 Protein: Using Current wt Protein g/k.0-1.2 Protein Calculated 60-70 Fluid: ml 4147-6320 ml (25-30 ml/kg) Nutritional Problem 1. Problem Problem Altered nutrition related labs Etiology r/t pathophysiological causes Signs/Symptoms: aeb labs (07/09): Glucose 143, BUN/Cr 22/0.96, GFR 61, Urine Ketones- Trace, Urine Protein 1+, POC Glucose (07/09): 108. Malnutrition Related to Morbid Obesity Malnutrition related to morbid obesity No Intervention/Recommendation Comments Continue Mechanical Soft, JESSICA diet as tolerated. Expected Outcomes/Goals Expected Outcomes/Goals 1.PO intake to continue to meet 75% of estimated nutritional needs. 2.Monitor PO intake, wt, nutrition related labs to trend WNL, and skin integrity. 3.F/U as moderate risk in 3-5 days, 07/16-07/18
== END 2019-07-24 18:55 | DRG 885 ==
LOC: GERO 07-09 03:45
PROVIDERS: ADMIT Psychiatry & Neurology Psychiatry; ATTEND Psychiatry & Neurology Psychiatry
DX: F33.3 Major depressive disorder, recurrent, severe with psychotic symptoms (principal); G30.9 Alzheimer's disease, unspecified; F02.80 Dementia in other diseases classified elsewhere, unspecified severity, without behavioral disturbance, psychotic disturbance, mood disturbance, and anxiety; I10 Essential (primary) hypertension; K21.9 Gastro-esophageal reflux disease without esophagitis; R45.1 Restlessness and agitation; F29 Unspecified psychosis not due to a substance or known physiological condition; F41.9 Anxiety disorder, unspecified; G40.909 Epilepsy, unspecified, not intractable, without status epilepticus; Z86.73 Personal history of transient ischemic attack (TIA), and cerebral infarction without residual deficits; Z87.440 Personal history of urinary (tract) infections
CPT/HCPCS: 82948-90; Z7610